=== PATIENT | male | born 1955 | race Caucasian/White ===

== ENCOUNTER → 2018-02-25 | Outpatient (CLI) | payer BC, MEDICAID ==
[2018-02-25 15:05] LABS: ALANINE AMINOTRANSFERASE 34 U/L (0-55); ALBUMIN 4.6 GM/DL (3.2-4.5); ALKALINE PHOSPHATASE 45 U/L (40-136); BILIRUBIN,TOTAL 0.5 MG/DL (0.1-1.0); BUN/CREATININE RATIO 14; CALCIUM 9.7 MG/DL (8.5-10.1); CARBON DIOXIDE 23 MMOL/L (21-32); CHLORIDE 107 MMOL/L (98-107); CHOLESTEROL 179 MG/DL (< 200); CREATININE SERUM 1.55 MG/DL (0.60-1.30); GFR ESTIMATED 46; GLUCOSE 106 MG/DL (70-105); HDL CHOLESTEROL 28 MG/DL (40-60); POTASSIUM 4.3 MMOL/L (3.6-5.0); SODIUM 139 MMOL/L (135-145); TRIGLYCERIDES 501 MG/DL (<150); VLDL CHOLESTEROL 100 MG/DL (5-40)
[2018-02-26 06:54] LABS: HEPATITIS C ANTIBODY C Non-Reactive (Non-Reactive)
== END ==
LOC: LAB 14:08
DX: Z11.59 Encounter for screening for other viral diseases (principal); B20 Human immunodeficiency virus [HIV] disease; E78.5 Hyperlipidemia, unspecified; B18.1 Chronic viral hepatitis B without delta-agent
CPT/HCPCS: 36415; 80053; 80061; 86360; 86480; 86704; 86708; 86709; 86780; 86803; 87912

== ENCOUNTER 2019-05-01 17:19 | Emergency (ER) | payer BC ==
[~2019-05-01] VITALS: Ht 175.3 cm; Wt 77.8 kg
--- NOTE | 2019-05-01 17:31 | ED Chest Pain ---
General Stated Complaint: CHEST PAIN Source: patient Exam Limitations: no limitations (DMITRIY WINTER DO) History of Present Illness Date Seen by Provider: May 01, 2019 Time Seen by Provider: 17:27 Initial Comments 63-year-old male presents with chest pain., Chest pressure that is epigastric substernal. It started around 7 PM last night. He been having it on and off since it started last night. Patient reports that last just a few brief seconds and then goes away. Patient reports nothing makes it worse or better. Patient reports he did some exercise did not affect it. Patient does not get nauseated no vomiting and no diaphoresis the pain does not radiate shortness of breath. Patient has no previous cardiac history. Patient is HIV positive and on medications. Patient has a family cardiac history with his father having heart bypass around this age. Patient reports that occasionally the discomfort comes up into his throat. Patient has "borderline high cholesterol, hypertension. (DMITRIY WINTER DO) Allergies and Home Medications Allergies Coded Allergies: Sulfa (Sulfonamide Antibiotics) (Verified Allergy, Unknown, 05/01/19) Tetracyclines (Verified Allergy, Unknown, 05/01/19) Patient Home Medication List Home Medication List Reviewed: Yes (DMITRIY WINTER DO) Review of Systems Review of Systems Constitutional: No chills, No fever Respiratory: Denies Cough, Denies Shortness of Air Cardiovascular: Chest Pain; Denies Edema, Denies Irregular Heart Rate, Denies Syncope Gastrointestinal: Denies Abdominal Pain, Denies Constipated, Denies Diarrhea, Denies Nausea, Denies Vomiting Genitourinary: No Symptoms Reported Musculoskeletal: no symptoms reported Skin: no symptoms reported Psychiatric/Neurological: Anxiety Endocrine: No Symptoms Reported (DMITRIY WINTER DO) Past Igqngbl-Yqzyam-Jchwuv Hx Past Med/Social Hx: Reviewed Nursing Past Med/Soc Hx (DMITRIY WINTER DO) Physical Exam Vital Signs Vital Signs - First Documented 05/01/19 17:23 Temp 37.3 Pulse 84 Resp 16 B/P (MAP) 152/88 (109) Pulse Ox 98 O2 Delivery Room Air (THANH SUMMERS MD) Vital Signs Capillary Refill : (DMITRIY WINTER DO) Height, Weight, BMI Height: '" Weight: lbs. oz. kg; BMI Method: General Appearance: No Apparent Distress, WD/WN HEENT: TMs Normal, Normal ENT Inspection Neck: Non Tender, Supple Respiratory: Chest Non Tender, Lungs Clear, Normal Breath Sounds Cardiovascular: Regular Rate, Rhythm, No Edema Gastrointestinal: Non Tender, Soft Neurologic/Psychiatric: Alert, Oriented x3, Normal Mood/Affect, rural carrier II-XII Norm as Tested Skin: Normal Color, Warm/Dry (WINTER,DMITRIY L DO) Progress/Results/Core Measures Results/Orders Lab Results Laboratory Tests Test 05/01/19 17:30 05/01/19 17:43 Range/Units White Blood Count 7.1 4.3-11.0 10^3/uL Red Blood Count 5.39 4.35-5.85 10^6/uL Hemoglobin 16.3 13.3-17.7 G/DL Hematocrit 48 40-54 % Mean Corpuscular Volume 89 80-99 FL Mean Corpuscular Hemoglobin 30 25-34 PG Mean Corpuscular Hemoglobin Concent 34 32-36 G/DL Red Cell Distribution Width 13.2 10.0-14.5 % Platelet Count 233 130-400 10^3/uL Mean Platelet Volume 9.4 7.4-10.4 FL Neutrophils (%) (Auto) 51 42-75 % Lymphocytes (%) (Auto) 39 12-44 % Monocytes (%) (Auto) 7 0-12 % Eosinophils (%) (Auto) 2 0-10 % Basophils (%) (Auto) 1 0-10 % Neutrophils # (Auto) 3.6 1.8-7.8 X 10^3 Lymphocytes # (Auto) 2.7 1.0-4.0 X 10^3 Monocytes # (Auto) 0.5 0.0-1.0 X 10^3 Eosinophils # (Auto) 0.2 0.0-0.3 10^3/uL Basophils # (Auto) 5.0 H 0.0-0.1 10^3/uL Sodium Level 142 135-145 MMOL/L Potassium Level 4.0 3.6-5.0 MMOL/L Chloride Level 104 98-107 MMOL/L Carbon Dioxide Level 21 21-32 MMOL/L Anion Gap 17 H 5-14 MMOL/L Blood Urea Nitrogen 19 H 7-18 MG/DL Creatinine 1.24 0.60-1.30 MG/DL Estimat Glomerular Filtration Rate 59 BUN/Creatinine Ratio 15 Glucose Level 92 70-105 MG/DL Calcium Level 10.0 8.5-10.1 MG/DL Corrected Calcium 8.5-10.1 MG/DL Magnesium Level 2.2 1.6-2.4 MG/DL Total Bilirubin 0.4 0.1-1.0 MG/DL Aspartate Amino Transf (AST/SGOT) 28 5-34 U/L Alanine Aminotransferase (ALT/SGPT) 32 0-55 U/L Alkaline Phosphatase 43 40-136 U/L Troponin I < 0.30 <0.30 NG/ML Pro-B-Type Natriuretic Peptide 35.7 <75.0 PG/ML Total Protein 8.7 H 6.4-8.2 GM/DL Albumin 5.2 H 3.2-4.5 GM/DL Lipase 32 8-78 U/L Prothrombin Time 14.0 12.2-14.7 SEC INR Comment 1.0 0.8-1.4 Activated Partial Thromboplast Time 32 24-35 SEC (THANH SUMMERS MD) Medications Given in ED Current Medications Medications Dose Ordered Sig/Rajinder Route Start Time Stop Time Status Last Admin Dose Admin Aspirin 324 mg ONCE ONCE PO 05/01/19 17:45 05/01/19 17:46 DC 05/01/19 17:44 324 MG Famotidine 20 mg ONCE ONCE IVP 05/01/19 17:45 05/01/19 17:46 DC 05/01/19 17:44 20 MG (THANH SUMMERS MD) Vital Signs/I&O 05/01/19 05/01/19 17:23 17:23 Temp 37.3 Pulse 84 Resp 16 B/P (MAP) 152/88 (109) Pulse Ox 98 O2 Delivery Room Air Room Air (HTANH SUMMERS MD) Progress Progress Note : Progress Note Negative troponin negative evaluation in the emergency department. Patient describes more of an esophageal spasm/GERD and he does any type of cardiac pain however patient does have concerns due to family history. Patient was offered admission and transferred to [facility] for further evaluation and observation. Patient has declined admission. Patient requests to be discharged home. Patient states he does have a scheduled appointment with his HIV physician in 2 days. Patient will make that appointment and follow up as instructed for possible outpatient stress test for cardiac evaluation. I did discuss it with the patient about other options. Patient states understanding and again declines admission to the hospital. Patient be discharged per his request. (THANH SUMMERS MD) Initial ECG Impression Date: May 01, 2019 Initial ECG Impression Time: 17:26 Initial ECG Rate: 79 Initial ECG Rhythm: Normal Sinus Initial ECG Intervals: Normal Initial ECG Impression: Nonspecific Changes Initial ECG Comparisson: No Previous ECG Available Comment no acute findings (DMITRIY WINTER DO) Departure Impression Primary Impression: Chest pain Disposition: 01 HOME, SELF-CARE Condition: Stable Departure-Patient Inst. Decision time for Depature: 18:34 (THANH SUMMERS MD) Referrals: LATRICE MARLEY MD (PCP) Primary Care Physician Patient Instructions: Chest Pain That Is Not Caused by the Heart (DC) Add. Discharge Instructions: Encourage by mouth fluids. Baby aspirin daily as instructed. Follow-up through her outpatient physician and be referred to cardiology for an outpatient cardiac stress test and evaluation. The chest pain fails to resolve or worsens please return to the emergency department for further evaluation and treatment. DMITRIY WINTER DO May 01, 2019 17:31 THANH SUMMERS MD May 01, 2019 18:35
[2019-05-01] MEDS ORDERED: FAMOTIDINE 20MG/2ML IV (PEPCID) IVP ONE (17:45)
[2019-05-01] MEDS ORDERED: ASPIRIN 81 MG CHEW (CHILDREN'S ASA) PO ONE (17:45)
--- NOTE | 2019-05-01 17:55 | Diagnostic Imaging Report ---
INDICATION: Respiratory distress. EXAMINATION: Single view of the chest was obtained. FINDINGS: Normal heart size and vascularity. The lungs are clear. There is no effusion or pneumothorax. There is no bony abnormality. IMPRESSION: No abnormality is seen. Dictated by: Dictated on workstation # [id number]
[2019-05-01 18:00] LABS: BASOPHILS % (AUTO) 1 % (0-10); EOSINOPHILS % (AUTO) 2 % (0-10); HEMATOCRIT 48 % (40-54); HEMOGLOBIN 16.3 G/DL (13.3-17.7); LYMPHOCYTES % (AUTO) 39 % (12-44); MEAN CORPUSCULAR HEMOGLOBIN 30 PG (25-34); MEAN CORPUSCULAR HGB CONC 34 G/DL (32-36); MEAN CORPUSCULAR VOLUME 89 FL (80-99); MEAN PLATELET VOLUME 9.4 FL (7.4-10.4); MONOCYTES % (AUTO) 7 % (0-12); NEUTROPHILS % (AUTO) 51 % (42-75); PLATELET COUNT 233 10^3/uL (130-400); RED CELL DISTRIBUTION WIDTH 13.2 % (10.0-14.5); WHITE BLOOD COUNT 7.1 10^3/uL (4.3-11.0)
[2019-05-01 18:01] LABS: EOSINOPHILS # (AUTO) 0.2 10^3/uL (0.0-0.3); LYMPHOCYTES # (AUTO) 2.7 X 10^3 (1.0-4.0); MONOCYTES # (AUTO) 0.5 X 10^3 (0.0-1.0); NEUTROPHILS # (AUTO) 3.6 X 10^3 (1.8-7.8)
[2019-05-01 18:16] LABS: BUN/CREATININE RATIO 15; CARBON DIOXIDE 21 MMOL/L (21-32); CHLORIDE 104 MMOL/L (98-107); CREATININE SERUM 1.24 MG/DL (0.60-1.30); GFR ESTIMATED 59; GLUCOSE 92 MG/DL (70-105); MAGNESIUM 2.2 MG/DL (1.6-2.4); SODIUM 142 MMOL/L (135-145)
[2019-05-01 18:17] LABS: ALANINE AMINOTRANSFERASE 32 U/L (0-55); ALBUMIN 5.2 GM/DL (3.2-4.5); ALKALINE PHOSPHATASE 43 U/L (40-136); BILIRUBIN,TOTAL 0.4 MG/DL (0.1-1.0); LIPASE 32 U/L (8-78); TOTAL PROTEIN 8.7 GM/DL (6.4-8.2)
[2019-05-01 18:40] VITALS: BP 136/82
[2019-05-01] MEDS ORDERED: DARU1TAB3 (18:59)
[2019-05-01] MEDS ORDERED: LISI-556 (18:59)
[2019-05-01] MEDS ORDERED: FENO160T12 (18:59)
--- OUTSIDE RECORDS SUMMARY | 2019-05-02 21:03 | XMS REPORT ---
Author Author Khurram Mancera Organization [facility] Address [address] [place] [phone] Care Team Providers Care Live In Housekeeper Nanny Name Role Phone Heather Mancera Unavailable PROBLEMS Type Condition ICD9-CM Code [id number] Code Onset Dates Condition S tatus SNOMED Code Problem Chronic hepatitis B B18.1 Active 63748173 Problem Drug-induced polyneuropathy G62.0 Ac tive 0240410 Problem Essential hypertension I10 Active 33906842 Problem Dyslipidemia E78.5 Active 6455445 07 Problem HIV (human immunodeficiency virus infection) B20 Active 71047103 Problem Refused influenza vaccine Z28.21 Acti ve [id number] ALLERGIES No Information ENCOUNTERS Encounter Location Date Diagnosis [address] [address] Mar, [address] [address] Mar, [facility] [address] [phone] Mar, HIV (human immunodeficiency virus infect ion) B20 and Refused influenza vaccine Z28.[address] [address] Feb, [facility] [address] [place] [address] S [id number] Jan, [facility] [address] [place] [address] S [id number] Jan, [facility] [address] [id number] Jan, Acquired immune deficiency syndrome B20 ; Dental caries K02.9 ; Refused influenza vaccine Z28.21 ; Dyslipidemia E78.5 ; Prostate cancer screening Z12.5 ; Chronic hepatitis B B18.1 ; Essential hypertension I10 ; Rash R21 and Tongue ulcer K14.[address] [address] 17 Oct, 2018 [facility] [address] [place], [place] [phone] Oct, HIV (human immunodeficiency virus infect ion) B20 ; New onset headache R51 ; Vertigo R42 ; Functional diarrhea K59.1 ; Drug-induced polyneuropathy G62.0 ; Right elbow pain M25.521 and Refused influenza vaccine Z28.[address] [id number] Apr, HIV (human immunodeficiency virus infect ion) B20 ; Chronic hepatitis B B18.1 and Hyperglycemia R73.[address] [address] Mar, [facility] [address] [place] [address], S [id number] Feb, [facility] [address] [place] [address], S [id number] Feb, [facility] [address] [place] [address], S [id number] Feb, [facility] [address] [place] [address], S [id number] Feb, [address] [address] Jan, [facility] [address] [place] [address] S [id number] Jan, [address] [id number] Jan, HIV (human immunodeficiency virus infect ion) B20 ; Chronic hepatitis B B18.1 ; Refused influenza vaccine Z28.21 ; Dyslipidemia E78.5 and Screening for viral disease Z11.59 [facility] [address] [place] [address], S [id number] Dec, [address] [address] Dec, [address] [address] Dec, HIV (human immunodeficiency virus infect ion) B20 [address] [address] Dec, HIV (human immunodeficiency virus infect ion) B20 [facility] [address] [place] [address], S [id number] Nov, [facility] [address] [place] [address] S [id number] Nov, Chronic hepatitis B B18.1 and HIV (human immunodeficiency virus infection) B20 [facility] [address] [place] [address] Jovita S [id number] Nov, Dyslipidemia E78.5 [facility] [address] [place] [address] S [id number] Nov, [facility] [address] [place] [phone] Nov, [address] [address] Nov, [facility] [address] [place] [id number] Oct, Acquired immune deficiency syndrome B20 ; Dental caries K02.9 ; Refused influenza vaccine Z28.21 ; Dyslipidemia E78.5 and Prostate cancer screening Z12.[address] [address] Oct, [facility] [address] [place] [address] S [id number] Sep, [facility] [address] [place] [address] S [id number] Sep, [facility] [address] [place] [address] S [id number] Aug, [facility] [address] [place] [address] S [id number] Aug, HIV (human immunodeficiency virus infect ion) B20 [facility] [address] [place] [address] [phone] Aug, HIV (human immunodeficiency virus infect ion) B20 ; Essential hypertension I10 and Dyslipidemia E78.5 IMMUNIZATIONS No Known Immunizations SOCIAL HISTORY Never Assessed REASON FOR VISIT results PLAN OF CARE VITAL SIGNS MEDICATIONS Unknown Medications RESULTS No Results PROCEDURES No Known procedures INSTRUCTIONS MEDICATIONS ADMINISTERED No Known Medications MEDICAL (GENERAL) HISTORY Type Description Date Medical History Chronic Hepatitis B Medical History HIV dx: 1985 Medical History HTN Medical History Hyperlipidemia Surgical History No know Surgical history
--- OUTSIDE RECORDS SUMMARY | 2019-05-02 21:03 | XMS REPORT ---
Author Author Khurram Mancera Organization [facility] Address [address] [place] [phone] Care Team Providers Care Associate Publisher Name Role Phone Heather Mancera Unavailable PROBLEMS Type Condition ICD9-CM Code YDR10-PY Code Onset Dates Condition S tatus SNOMED Code Problem Chronic hepatitis B B18.1 Active 54104301 Problem Drug-induced polyneuropathy G62.0 Ac tive 6953661 Problem Essential hypertension I10 Active 22913302 Problem Dyslipidemia E78.5 Active 3531840 07 Problem HIV (human immunodeficiency virus infection) B20 Active 18796442 Problem Refused influenza vaccine Z28.21 Acti ve [id number] ALLERGIES No Known Allergies ENCOUNTERS Encounter Location Date Diagnosis [address] [address] Mar, [address] [id number] Mar, HIV (human immunodeficiency virus infect ion) B20 and Refused influenza vaccine Z28.[address] [address] Feb, [facility] [address] [place] [address] [id number] Jan, [facility] [address] [place] [id number] Jan, [address] [id number] Jan, Acquired immune deficiency syndrome B20 ; Dental caries K02.9 ; Refused influenza vaccine Z28.21 ; Dyslipidemia E78.5 ; Prostate cancer screening Z12.5 ; Chronic hepatitis B B18.1 ; Essential hypertension I10 ; Rash R21 and Tongue ulcer K14.[address] [address] Oct, [address] [id number] Oct, HIV (human immunodeficiency virus infect ion) B20 ; New onset headache R51 ; Vertigo R42 ; Functional diarrhea K59.1 ; Drug-induced polyneuropathy G62.0 ; Right elbow pain M25.521 and Refused influenza vaccine Z28.21 [facility] [address] [place], [place] [id number] Apr, HIV (human immunodeficiency virus infect ion) B20 ; Chronic hepatitis B B18.1 and Hyperglycemia R73.[address] [address] Mar, [facility] [address] [place] [address], S [id number] Feb, [facility] [address] [place] [address], S [id number] Feb, [facility] [address] [place] [address], S [id number] Feb, [facility] [address] [place] [address] S [id number] Feb, [address] [address] Jan, [facility] [address] [place] [address] S [id number] Jan, [address] [id number] Jan, HIV (human immunodeficiency virus infect ion) B20 ; Chronic hepatitis B B18.1 ; Refused influenza vaccine Z28.21 ; Dyslipidemia E78.5 and Screening for viral disease Z11.59 [facility] [address] [place] [address], S [phone] Dec, [address] [address] Dec, [address] [address] Dec, HIV (human immunodeficiency virus infect ion) B20 [address] [address] Dec, HIV (human immunodeficiency virus infect ion) B20 [facility] [address] [place] [address], S [id number] Nov, [facility] [address] [place], [place] [address]Jovita marti S [id number] Nov, Chronic hepatitis B B18.1 and HIV (human immunodeficiency virus infection) B20 [facility] [address] [place] [address] Jovita Barahona S [id number] Nov, Dyslipidemia E78.5 [facility] [address] [place] [address] Jovita Barahona S [id number] Nov, [facility] [address] [place] [phone] Nov, [facility] [address] [place] [phone] Nov, [address] [id number] Oct, Acquired immune deficiency syndrome B20 ; Dental caries K02.9 ; Refused influenza vaccine Z28.21 ; Dyslipidemia E78.5 and Prostate cancer screening Z12.[address] [address] Oct, [facility] [address] [place] [address] [place] S [id number] Sep, [facility] [address] [place] [address] [place] [id number] Sep, [facility] [address] [place] [address] [place], [place] S [id number] Aug, [facility] [address] [place], [place] [address]Jovita amrti S [id number] Aug, HIV (human immunodeficiency virus infect ion) B20 [address] [id number] Aug, HIV (human immunodeficiency virus infect ion) B20 ; Essential hypertension I10 and Dyslipidemia E78.5 IMMUNIZATIONS No Known Immunizations SOCIAL HISTORY Never Assessed REASON FOR VISIT PLAN OF CARE Activity Details Follow Up 4 Months Reason: VITAL SIGNS Height 69.5 in 2019-03-26 Weight 173 lbs 2019-03-26 Temperature 97.6 degrees Fahrenheit 2019-03-26 Heart Rate 84 /min 2019-03-26 Respiratory Rate 16 /min 2019-03-26 Oximetry 97 % 2019-03-26 BMI 25.18 kg/m2 2019-03-26 Blood pressure systolic 124 mm Hg 2019-03-26 Blood pressure diastolic 76 mm Hg 2019-03-26 MEDICATIONS Medication Instructions Dosage Frequency Start Date End Date Duration S tatus Lovaza 1 GM Orally Twice a day 2 capsules 12h 30 day (s) Active Gabapentin 300 MG Orally TID 1 capsule 8h 13 Oct, 2018 30 d ay(s) Active Triamcinolone Acetonide 0.1 % Externally Twice a day 1 appli cation to affected area 12h 20 Jan, 2019 10 days Active Symtuza 800mg/150 mg/200 mg/10mg Orally Once daily 1 tablet with fo od 24h Nov, Active Lisinopril 5 MG Orally Once a day 1 tablet 24h 30 Active Meclizine HCl 25 MG Orally Once a day 1 tablet as needed 24h 30 day(s) Active RESULTS Name Result Date Reference Range HIV-1, Quant, PCR w Reflex HIV-1 GenoSure Prime 64198 2019-03-26 HIV-1 RNA by PCR 60 log10 HIV-1 RNA 1.778 HIV GenoSure PRIme(SM) TNP PDF . Rapid Plasma Reagin (RPR), Test w/ Refle x to Quant RPR/Confirm Treponema pallidum Antibodies 55928 2019-03-26 RPR Non Reactive Non Reactive Lipid Panel 98017 2019-03-26 Cholesterol, Total 170 100-199 Triglycerides 472 0-149 HDL Cholesterol 24 >39 VLDL Cholesterol Hiro 5-40 LDL Cholesterol Calc 0-99 Comment: OPERATION MANAGER Metabolic Panel (14), Comprehensive (CMP) [id number] 2019-03-26 Glucose 104 65-99 BUN 18 8-27 Creatinine 1.25 0.76-1.27 eGFR If NonAfricn Am 61 >59 eGFR If Africn Am 70 >59 BUN/Creatinine Ratio 14 10-24 Sodium 140 134-144 Potassium 4.9 3.5-5.2 Chloride 103 96-106 Carbon Dioxide, Total 22 20-29 Calcium 9.8 8.6-10.2 Protein, Total 7.4 6.0-8.5 Albumin 4.8 3.8-4.8 Globulin, Total 2.6 1.5-4.5 A/G Ratio 1.8 1.2-2.2 Bilirubin, Total 0.3 0.0-1.2 Alkaline Phosphatase 41 39-117 AST (SGOT) 19 0-40 ALT (SGPT) 33 0-44 CD4/CD8 Ratio Profile 97463 2019-03-26 Absolute CD 4 [place] [phone] % CD 4 Pos. Lymph. 33.9 30.8-58.5 Abs. CD 8 Suppressor 1175 109-897 % CD 8 Pos. Lymph. 51.1 12.0-35.5 CD4/CD8 Ratio 0.66 0.92-3.72 WBC 6.3 3.4-10.8 RBC 5.28 4.14-5.80 Hemoglobin 15.9 13.0-17.7 Hematocrit 47.1 37.5-51.0 MCV 89 79-97 MCH 30.1 26.6-33.0 MCHC 33.8 31.5-35.7 RDW 13.7 11.6-15.4 Platelets 214 150-450 Neutrophils 50 Not Estab. Lymphs 37 Not Estab. Monocytes 10 Not Estab. Eos 1 Not Estab. Basos 1 Not Estab. Immature Cells OPERATION MANAGER Neutrophils (Absolute) 3.2 1.4-7.0 Lymphs (Absolute) 2.3 0.7-3.1 Monocytes(Absolute) 0.6 0.1-0.9 Eos (Absolute) 0.1 0.0-0.4 Baso (Absolute) 0.1 0.0-0.2 Immature Granulocytes 1 Not Estab. Immature Grans (Abs) 0.0 0.0-0.1 NRBC OPERATION MANAGER Hematology Comments: OPERATION MANAGER PROCEDURES Procedure Date Ordered Result Body Site HIV-1, DNA, QUANT Mar 26, 2019 T CELL, ABSOLUTE COUNT/RATIO Mar 26, 2019 BLOOD SEROLOGY, QUALITATIVE Mar 26, 2019 COMPREHEN METABOLIC PANEL Mar 26, 2019 LIPID PANEL SO Mar 26, 2019 INSTRUCTIONS MEDICATIONS ADMINISTERED No Known Medications MEDICAL (GENERAL) HISTORY Type Description Date Medical History Chronic Hepatitis B Medical History HIV dx: 1985 Medical History HTN Medical History Hyperlipidemia Surgical History No know Surgical history
--- OUTSIDE RECORDS SUMMARY | 2019-05-02 21:03 | XMS REPORT ---
Author Author Khurram Mancera Organization [facility] [place] Address [address] [place] [address] [phone] Care Team Providers Care Word Processing Specialist Name Role Phone Heather Mancera Unavailable PROBLEMS Type Condition ICD9-CM Code [id number] Code Onset Dates Condition S tatus SNOMED Code Problem Chronic hepatitis B B18.1 Active 34821598 Problem Drug-induced polyneuropathy G62.0 Ac tive 2157988 Problem Essential hypertension I10 Active 67426529 Problem Dyslipidemia E78.5 Active 2084420 07 Problem HIV (human immunodeficiency virus infection) B20 Active 64764638 Problem Refused influenza vaccine Z28.21 Acti ve [id number] ALLERGIES No Information ENCOUNTERS Encounter Location Date Diagnosis [address] [address] Apr, [address] [address] Mar, [address] [address] Mar, [address] [id number] Mar, HIV (human immunodeficiency virus infect ion) B20 and Refused influenza vaccine Z28.[address] [address] Feb, [facility] [address] [place] [address] S [id number] Jan, [facility] [address] [place] [address] S [id number] Jan, [address] [id number] Jan, Acquired immune deficiency syndrome B20 ; Dental caries K02.9 ; Refused influenza vaccine Z28.21 ; Dyslipidemia E78.5 ; Prostate cancer screening Z12.5 ; Chronic hepatitis B B18.1 ; Essential hypertension I10 ; Rash R21 and Tongue ulcer K14.[address] [address] Oct, [address] [id number] Oct, HIV (human immunodeficiency virus infect ion) B20 ; New onset headache R51 ; Vertigo R42 ; Functional diarrhea K59.1 ; Drug-induced polyneuropathy G62.0 ; Right elbow pain M25.521 and Refused influenza vaccine Z28.[address] [id number] Apr, HIV (human immunodeficiency virus infect ion) B20 ; Chronic hepatitis B B18.1 and Hyperglycemia R73.[address] [address] Mar, [facility] [address] [place] [address], S [id number] Feb, [facility] [address] [place] [address], S [id number] Feb, [facility] [address] [place] [address], S [id number] Feb, [facility] [address] [place] [address], S [id number] Feb, [address] [address] Jan, [facility] [address] [place] [address], S [id number] Jan, [address] [id number] Jan, HIV (human immunodeficiency virus infect ion) B20 ; Chronic hepatitis B B18.1 ; Refused influenza vaccine Z28.21 ; Dyslipidemia E78.5 and Screening for viral disease Z11.59 [facility] [address] [place] [address], S [id number] Dec, [address] [address] Dec, [address] [address] Dec, HIV (human immunodeficiency virus infect ion) B20 [facility] [place] [address] [place] [address] Dec, HIV (human immunodeficiency virus infect ion) B20 [facility] [address] [place] [address] S [id number] Nov, [facility] [address] [place] [address] S [id number] Nov, Chronic hepatitis B B18.1 and HIV (human immunodeficiency virus infection) B20 [facility] [address] [place] [address] S [id number] Nov, Dyslipidemia E78.5 [facility] [address] [place] [address] S [id number] Nov, [address] [address] Nov, [facility] [place] [address] [place] [phone] Nov, [facility] [address] [place] [id number] Oct, Acquired immune deficiency syndrome B20 ; Dental caries K02.9 ; Refused influenza vaccine Z28.21 ; Dyslipidemia E78.5 and Prostate cancer screening Z12.[address] [address] Oct, [facility] [address] [place] [address] S [id number] Sep, [facility] [address] [place] [address] S [id number] Sep, [facility] [address] [place] [address] S [id number] Aug, [facility] [address] [place] [address] S [id number] Aug, HIV (human immunodeficiency virus infect ion) B20 [facility] [address] [place] [phone] Aug, HIV (human immunodeficiency virus infect ion) B20 ; Essential hypertension I10 and Dyslipidemia E78.5 IMMUNIZATIONS No Known Immunizations SOCIAL HISTORY Never Assessed REASON FOR VISIT Refill PLAN OF CARE VITAL SIGNS MEDICATIONS Medication Instructions Dosage Frequency Start Date End Date Duration S tatus Lovaza 1 GM Orally Twice a day 2 capsules 12h 30 day (s) Active RESULTS No Results PROCEDURES No Known procedures INSTRUCTIONS MEDICATIONS ADMINISTERED No Known Medications MEDICAL (GENERAL) HISTORY Type Description Date Medical History Chronic Hepatitis B Medical History HIV dx: 1984 Medical History HTN Medical History Hyperlipidemia Surgical History No know Surgical history
--- OUTSIDE RECORDS SUMMARY | 2019-05-02 21:04 | XMS REPORT ---
Author Author Khurram Lau Organization [facility] Address [address] [place] [address] [phone] Care Team Providers Care Director Of Managed Services Name Role Phone Minerva Lau Unavailable PROBLEMS Type Condition ICD9-CM Code [id number] Code Onset Dates Condition S tatus SNOMED Code Problem Chronic hepatitis B B18.1 Active 67137618 Problem Drug-induced polyneuropathy G62.0 Ac tive 0723750 Problem Essential hypertension I10 Active 43329574 Problem Dyslipidemia E78.5 Active 0540678 07 Problem HIV (human immunodeficiency virus infection) B20 Active 85489973 Problem Refused influenza vaccine Z28.21 Acti ve [id number] ALLERGIES No Known Allergies ENCOUNTERS Encounter Location Date Diagnosis [facility] [address] [place] [address] [id number] Jan, [facility] [address] [place] [id number] Jan, [address] [id number] Jan, Acquired immune deficiency syndrome B20 ; Dental caries K02.9 ; Refused influenza vaccine Z28.21 ; Dyslipidemia E78.5 ; Prostate cancer screening Z12.5 ; Chronic hepatitis B B18.1 ; Essential hypertension I10 ; Rash R21 and Tongue ulcer K14.[address] [address] Oct, [address] [id number] Oct, HIV (human immunodeficiency virus infect ion) B20 ; New onset headache R51 ; Vertigo R42 ; Functional diarrhea K59.1 ; Drug-induced polyneuropathy G62.0 ; Right elbow pain M25.521 and Refused influenza vaccine Z28.[address] [id number] Apr, HIV (human immunodeficiency virus infect ion) B20 ; Chronic hepatitis B B18.1 and Hyperglycemia R73.9 [facility] [address] [place] [address] Mar, [facility] [address] [facility], S [id number] Feb, [facility] [address] [facility], S [id number] Feb, [facility] [address] [facility], S [id number] Feb, [facility] [address] [facility], S [id number] Feb, [facility] [address] [place] [address] Jan, [facility] [address] [facility], S [id number] Jan, [facility] [address] [place], [place] [id number] Jan, HIV (human immunodeficiency virus infect ion) B20 ; Chronic hepatitis B B18.1 ; Refused influenza vaccine Z28.21 ; Dyslipidemia E78.5 and Screening for viral disease Z11.59 [facility] [address] [facility] S [id number] Dec, [facility] [address] [place] [address] Dec, [facility] [address] [place] [address] Dec, HIV (human immunodeficiency virus infect ion) B20 [facility] [address] [place] [address] Dec, HIV (human immunodeficiency virus infect ion) B20 [facility] [address] [facility], S [id number] Nov, [facility] [address] [place] [address], S [id number] Nov, Chronic hepatitis B B18.1 and HIV (human immunodeficiency virus infection) B20 [facility] [address] [place] [address], S [id number] Nov, Dyslipidemia E78.5 [facility] [address] [place] [address], S [id number] Nov, [facility] [address] [place] [address] Nov, [facility] [address] [place] [address] Nov, [facility] [address] [place] [id number] Oct, Acquired immune deficiency syndrome B20 ; Dental caries K02.9 ; Refused influenza vaccine Z28.21 ; Dyslipidemia E78.5 and Prostate cancer screening Z12.5 [facility] [address] [place] [address] Oct, [facility] [address] [place] [address] S [id number] Sep, [facility] [address] [place] [address] S [id number] Sep, [facility] [address] [place] [address] S [id number] Aug, [facility] [address] [place] [address] S [id number] Aug, HIV (human immunodeficiency virus infect ion) B20 [facility] [address] [place] [phone] Aug, HIV (human immunodeficiency virus infect ion) B20 ; Essential hypertension I10 and Dyslipidemia E78.5 IMMUNIZATIONS No Known Immunizations SOCIAL HISTORY Never Assessed REASON FOR VISIT [facility] f/u PLAN OF CARE Activity Details Follow Up 3 Months, prn Reason: VITAL SIGNS Height 69.5 in 2019-02-05 Weight 170 lbs 2019-02-05 Temperature 96.5 degrees Fahrenheit 2019-02-05 Heart Rate 85 /min 2019-02-05 Respiratory Rate 18 /min 2019-02-05 Oximetry 97 % 2019-02-05 BMI 24.74 kg/m2 2019-02-05 Blood pressure systolic 124 mm Hg 2019-02-05 Blood pressure diastolic 72 mm Hg 2019-02-05 MEDICATIONS Medication Instructions Dosage Frequency Start Date End Date Duration S asiya Symtuza 800mg/150 mg/200 mg/10mg Orally Once daily 1 tablet with fo od 24h 29 Nov, 2017 Active Triamcinolone Acetonide 0.1 % Externally Twice a day 1 appli cation to affected area 12h Jan, 10 days Active Meclizine HCl 25 MG Orally Once a day 1 tablet as needed 24h 30 day(s) Active Lovaza 1 GM Orally Twice a day 2 capsules 12h 30 day (s) Active Lisinopril 5 MG Orally Once a day 1 tablet 24h 30 Active Gabapentin 300 MG Orally TID 1 capsule 8h 13 Oct, 2018 30 d ay(s) Active RESULTS No Results PROCEDURES No Known procedures INSTRUCTIONS MEDICATIONS ADMINISTERED No Known Medications MEDICAL (GENERAL) HISTORY Type Description Date Medical History Chronic Hepatitis B Medical History HIV dx: 1984 Medical History HTN Medical History Hyperlipidemia Surgical History No know Surgical history
--- OUTSIDE RECORDS SUMMARY | 2019-05-02 21:04 | XMS REPORT ---
Author Author Khurram Herrera Doctor Organization [facility] Address Unknown Phone Unavailable Care Team Providers Care Stable Helper Name Role Phone Migration, Doctor Unavailable Unavailable PROBLEMS Type Condition ICD9-CM Code [id number] Code Onset Dates Condition S tatus SNOMED Code Problem Pain in joint, shoulder region 719.41 Active 670385434 Problem External hemorrhoids without mention of complication 455.3 Active 55334206 Problem Problems related to high-risk sexual behavior V69.2 Active 086108056 ALLERGIES No Information ENCOUNTERS Encounter Location Date Diagnosis [place] [address] [address] [facility] [id number] [address] [place] [phone] May, [place] [address] [address] [place] [id number] [address] [place] [phone] May, [place] [address] [address] [place] [id number] [address] [place] [phone] Aug, [place] [address] [address] [facility] [id number] [address] [place] [phone] Aug, IMMUNIZATIONS No Known Immunizations SOCIAL HISTORY Never Assessed REASON FOR VISIT [facility] PLAN OF CARE VITAL SIGNS MEDICATIONS Unknown Medications RESULTS No Results PROCEDURES No Known procedures INSTRUCTIONS MEDICATIONS ADMINISTERED No Known Medications
--- OUTSIDE RECORDS SUMMARY | 2019-05-02 21:04 | XMS REPORT ---
Author Author Khurram Herrera Doctor Organization [facility] Address Unknown Phone Unavailable Care Team Providers Care Pulley Man Name Role Phone Migration, Doctor Unavailable Unavailable PROBLEMS Type Condition ICD9-CM Code [id number] Code Onset Dates Condition S tatus SNOMED Code Problem Pain in joint, shoulder region 719.41 Active 787311044 Problem External hemorrhoids without mention of complication 455.3 Active 36288418 Problem Problems related to high-risk sexual behavior V69.2 Active 335661568 ALLERGIES Substance Reaction Event Type Date Status Penicillins Unknown Non Drug Allergy May, Active Tetracyclines Unknown Non Drug Allergy May, Active Sulfa (sulfonamide Antibiotics) Unknown Non Drug Allergy 2014 Active ENCOUNTERS Encounter Location Date Diagnosis [place] [address] [address] [facility] [id number] [address] [place] [phone] May, [place] [address] [address] [facility] [id number] [address] [place] [phone] May, [place] [address] [address] [facility] [id number] [address] [place] [phone] Aug, [place] [id number] [facility] [id number] [address] [place] [phone] Aug, IMMUNIZATIONS No Known Immunizations SOCIAL HISTORY Never Assessed REASON FOR VISIT [facility] [place] PLAN OF CARE VITAL SIGNS MEDICATIONS Medication Instructions Dosage Frequency Start Date End Date Duration S tatus Keflex 250 mg 1 capsule by Oral route 4 times per day for 6 days Aug, Active Reyataz 300 mg take 1 capsule (300 mg) by oral route o nce daily with food Aug, Active Zithromax Z-Mingo 250 mg 2 tablet by Oral route 1 time per day for 5 days on day 1 then take 1 tab daily on days 2-5 Aug, Active Viread 250 mg Aug, Activ e Fish Oil once daily Aug, Active Lisinopril 5 mg take 1 tablet (5 mg) by oral route once da katrina Aug, 2013 Active Norvir 100 mg take 1 tablet (100 mg) by oral route once da Aug, Active Epzicom 600-300 mg take 1 tablet by oral route once daily Aug, Active RESULTS No Results PROCEDURES No Known procedures INSTRUCTIONS MEDICATIONS ADMINISTERED No Known Medications
--- OUTSIDE RECORDS SUMMARY | 2019-05-02 21:04 | XMS REPORT ---
Author Author Khurram Mancera Organization [facility] Address [address] [place] [address] [phone] Care Team Providers Care Linoleum Installer Name Role Phone Heather Mancera Unavailable PROBLEMS Type Condition ICD9-CM Code BIQ48-QA Code Onset Dates Condition S tatus SNOMED Code Problem Chronic hepatitis B B18.1 Active 28067076 Problem Refused influenza vaccine Z28.21 Acti ve 616320731 Problem Essential hypertension I10 Active 06291601 Problem HIV (human immunodeficiency virus infection) B20 Active 51175905 Problem Dyslipidemia E78.5 Active 0740454 07 ALLERGIES No Information ENCOUNTERS Encounter Location Date Diagnosis [address] [place], [place] [phone] Jan, [address] [address] Dec, HIV (human immunodeficiency virus infect ion) B20 [address] [address] Dec, HIV (human immunodeficiency virus infect ion) B20 [facility] [address] [place] [address] S [id number] Nov, [facility] [address] [place] [address] S [id number] Nov, Chronic hepatitis B B18.1 and HIV (human immunodeficiency virus infection) B20 [facility] [address] [place] [address] S [id number] Nov, Dyslipidemia E78.5 [facility] [address] [place] [address] S [id number] Nov, [address] [address] Nov, [address] [address] Nov, [facility] [address] [id number] Oct, Acquired immune deficiency s yndrome B20 ; Dental caries K02.9 ; Refused influenza vaccine Z28.21 ; Dyslipidemia E78.5 and Prostate cancer screening Z12.5 [facility] [address] [place] [address] Oct, [facility] [address] [place] [address], S [phone] Sep, [facility] [address] [place] [address] S [id number] Sep, [facility] [address] [place] [address] S [id number] Aug, [facility] [address] [place] [address], S [id number] Aug, HIV (human immunodeficiency virus infect ion) B20 [facility] [address] [id number] Aug, HIV (human immunodeficiency virus infection) B20 ; Essential hypertension I10 and Dyslipidemia E78.5 IMMUNIZATIONS No Known Immunizations SOCIAL HISTORY Never Assessed REASON FOR VISIT Medication PLAN OF CARE VITAL SIGNS MEDICATIONS Medication Instructions Dosage Frequency Start Date End Date Duration S tatus Symtuza 800mg/150 mg/200 mg/10mg Orally Once daily 1 tablet with fo od 24h Nov, 30 days Active RESULTS No Results PROCEDURES No Known procedures INSTRUCTIONS MEDICATIONS ADMINISTERED No Known Medications MEDICAL (GENERAL) HISTORY Type Description Date Medical History Chronic Hepatitis B Medical History HIV dx: 1985 Medical History HTN Medical History Hyperlipidemia
--- OUTSIDE RECORDS SUMMARY | 2019-05-02 21:04 | XMS REPORT ---
Author Author Khurram Mancera Organization Formerly named [facility] Address [address] [place] [phone] Care Team Providers Care Burial Vault Maker Name Role Phone Heather Mancera Unavailable PROBLEMS Type Condition ICD9-CM Code SVU19-FE Code Onset Dates Condition S tatus SNOMED Code Problem Chronic hepatitis B B18.1 Active 88103471 Problem Refused influenza vaccine Z28.21 Acti ve 946055961 Problem Essential hypertension I10 Active 62794070 Problem HIV (human immunodeficiency virus infection) B20 Active 33837609 Problem Dyslipidemia E78.5 Active 0642702 07 ALLERGIES No Information ENCOUNTERS Encounter Location Date Diagnosis [address] [id number] Jan, [facility] [address] [place] [address] [id number] Nov, [facility] [address] [place] [address] [id number] Nov, Chronic hepatitis B B18.1 [facility] [address] [place] [address] S [id number] Nov, Dyslipidemia E78.5 [facility] [address] [place] [address] [id number] Nov, [address] [address] Nov, [address] [address] Nov, [address] [id number] Oct, Acquired immune deficiency s yndrome B20 ; Dental caries K02.9 ; Refused influenza vaccine Z28.21 ; Dyslipidemia E78.5 and Prostate cancer screening Z12.[address] [address] Oct, [facility] [address] [facility] [place], [place] S [id number] Sep, [facility] [address] [facility] [place] S [id number] Sep, [facility] [address] [facility] [place] S [id number] Aug, [facility] [address] [facility] [place] S [id number] Aug, HIV (human immunodeficiency virus infect ion) B20 [facility] [address] [place] [id number] Aug, HIV (human immunodeficiency virus infection) B20 ; Essential hypertension I10 and Dyslipidemia E78.5 IMMUNIZATIONS No Known Immunizations SOCIAL HISTORY Never Assessed REASON FOR VISIT reschedule dental appt PLAN OF CARE VITAL SIGNS MEDICATIONS Unknown Medications RESULTS No Results PROCEDURES No Known procedures INSTRUCTIONS MEDICATIONS ADMINISTERED No Known Medications MEDICAL (GENERAL) HISTORY Type Description Date Medical History Chronic Hepatitis B Medical History HIV dx: 1984 Medical History HTN Medical History Hyperlipidemia
--- OUTSIDE RECORDS SUMMARY | 2019-05-02 21:04 | XMS REPORT ---
Author Author Khurram Lau Organization [facility] [place] Address [address] [place] [address] [phone] Care Team Providers Care Zigzag Machine Operator Name Role Phone Minerva Lau Unavailable PROBLEMS Type Condition ICD9-CM Code QIV72-CX Code Onset Dates Condition S tatus SNOMED Code Problem Chronic hepatitis B B18.1 Active 38993894 Problem Refused influenza vaccine Z28.21 Acti ve 254427739 Problem Essential hypertension I10 Active 10349942 Problem HIV (human immunodeficiency virus infection) B20 Active 49791953 Problem Dyslipidemia E78.5 Active 3771636 07 ALLERGIES No Information ENCOUNTERS Encounter Location Date Diagnosis [address] [id number] Jan, [facility] [address] [place] [address] [id number] Nov, [facility] [address] [place] [address] [id number] Nov, Chronic hepatitis B B18.1 and HIV (human immunodeficiency virus infection) B20 [facility] [address] [place] [address] [id number] Nov, Dyslipidemia E78.5 [facility] [address] [place] [id number] Nov, [address] [address] Nov, [address] [address] Nov, [address] [id number] Oct, Acquired immune deficiency s yndrome B20 ; Dental caries K02.9 ; Refused influenza vaccine Z28.21 ; Dyslipidemia E78.5 and Prostate cancer screening Z12.[address] [address] Oct, [facility] [facility] [id number] Sep, [facility] [facility] [id number] Sep, [facility] [place] S [phone] Aug, [facility] [facility] [phone] Aug, HIV (human immunodeficiency virus infect ion) B20 [facility] [address] [facility] [address] [place], [place] [phone] Aug, HIV (human immunodeficiency virus infection) B20 ; Essential hypertension I10 and Dyslipidemia E78.5 IMMUNIZATIONS No Known Immunizations SOCIAL HISTORY Never Assessed REASON FOR VISIT Change HIV meds* PLAN OF CARE VITAL SIGNS MEDICATIONS Medication Instructions Dosage Frequency Start Date End Date Duration S tatus Lisinopril 5 MG Orally Once a day 1 tablet 24h 30 da ys Active Lovaza 1 GM Orally Twice a day 2 capsules 12h Nov, 3 0 day(s) Active Symtuza 800mg/150 mg/200 mg/10mg Orally Once daily 1 tablet with fo od 24h Nov, 30 days Active RESULTS No Results PROCEDURES No Known procedures INSTRUCTIONS MEDICATIONS ADMINISTERED No Known Medications MEDICAL (GENERAL) HISTORY Type Description Date Medical History Chronic Hepatitis B Medical History HIV dx: 1984 Medical History HTN Medical History Hyperlipidemia
--- OUTSIDE RECORDS SUMMARY | 2019-05-02 21:04 | XMS REPORT ---
Author Author Khurram Mancera Organization [facility] Address [address] [place] [address] [phone] Care Team Providers Care Hat Sprayer Name Role Phone Heather Mancera Unavailable PROBLEMS Type Condition ICD9-CM Code [id number] Code Onset Dates Condition S tatus SNOMED Code Problem Chronic hepatitis B B18.1 Active 26601119 Problem Refused influenza vaccine Z28.21 Acti ve 446194856 Problem Essential hypertension I10 Active 60474870 Problem HIV (human immunodeficiency virus infection) B20 Active 04092069 Problem Dyslipidemia E78.5 Active 8214200 07 ALLERGIES No Information ENCOUNTERS Encounter Location Date Diagnosis [facility] [address] [place] [address] [id number] Jan, [facility] [address] [place] [address] [phone] Jan, HIV (human immunodeficiency virus infection) B20 ; Chronic hepatitis B B18.1 and Refused influenza vaccine Z28.21 [facility] [address] [place] [phone] Dec, [address] [address] Dec, [address] [address] Dec, HIV (human immunodeficiency virus infect ion) B20 [address] [address] Dec, HIV (human immunodeficiency virus infect ion) B20 [facility]ty [address] S [id number] Nov, [facility] [address] [place] [address] [id number] Nov, Chronic hepatitis B B18.1 and HIV (human immunodeficiency virus infection) B20 [facility] [address] [place] [address] S [id number] Nov, Dyslipidemia E78.5 [facility] [address] [place], [place] [address]Jovita S [id number] Nov, [address] [address] Nov, [facility] [address] [place] [phone] Nov, [place] [facility] [address] [place] [address] [phone] Oct, Acquired immune deficiency s yndrome B20 ; Dental caries K02.9 ; Refused influenza vaccine Z28.21 ; Dyslipidemia E78.5 and Prostate cancer screening Z12.[address] [address] Oct, [facility] [address] [place] [address], Jovita S [id number] Sep, [facility] [address] [place] [address] S [id number] Sep, [facility] [address] [place] [address], S [phone] Aug, [facility] [address] [place] [address], S [phone] Aug, HIV (human immunodeficiency virus infect ion) B20 [address] [phone] Aug, HIV (human immunodeficiency virus infection) B20 ; Essential hypertension I10 and Dyslipidemia E78.5 IMMUNIZATIONS No Known Immunizations SOCIAL HISTORY Never Assessed REASON FOR VISIT HIV meds PLAN OF CARE VITAL SIGNS MEDICATIONS Unknown Medications RESULTS No Results PROCEDURES No Known procedures INSTRUCTIONS MEDICATIONS ADMINISTERED No Known Medications MEDICAL (GENERAL) HISTORY Type Description Date Medical History Chronic Hepatitis B Medical History HIV dx: 1985 Medical History HTN Medical History Hyperlipidemia
--- OUTSIDE RECORDS SUMMARY | 2019-05-02 21:04 | XMS REPORT ---
Author Author Khurram GILLESPIE Organization [facility] Address Unknown Care Team Providers Care Personal Consultant Name Role Phone LIS GILLESPIE Unavailable PROBLEMS Unknown Problems ALLERGIES No Known Allergies ENCOUNTERS Encounter Location Date Diagnosis [facility] [address] [facility] [id number] [address] [place] [address] [id number] Feb, [facility] [address] [facility] [id number] [address] [place] [phone] Jan, [facility] [address] [id number] [address] [place] [address] [phone] Dec, Caries K02.9 and Dental exam ination Z01.20 [facility] [address] [facility] [id number] [address] [place] [phone] Oct, [facility] [address] [facility] [id number] [address] [place] [phone] Aug, IMMUNIZATIONS No Known Immunizations SOCIAL HISTORY Never Assessed REASON FOR VISIT Criss PLAN OF CARE Activity Details Follow Up prn Reason:filling VITAL SIGNS Blood pressure systolic 137 mmHg 2018-01-13 Blood pressure diastolic 95 mmHg 2018-01-13 MEDICATIONS Medication Instructions Dosage Frequency Start Date End Date Duration S tatus Lovaza Active Lisinopril Active RESULTS No Results PROCEDURES Procedure Date Ordered Result Body Site COMP ORAL EVALUATION - NEW/EST PT Jan 13, 2018 INTRAORL-PERIAPICAL 1 FILM 20555 Jan 13, 2018 INTRAORL-PERIAPICAL EA ADD FILM Jan 13, 2018 INTRAORL-PERIAPICAL EA ADD FILM Jan 13, 2018 PANORAMIC FILM SEE ALSO CODE 31613 Jan 13, 2018 BITEWINGS - FOUR FILMS Jan 13, 2018 INSTRUCTIONS MEDICATIONS ADMINISTERED No Known Medications MEDICAL (GENERAL) HISTORY Type Description Date Medical History HIV Surgical History No Surgical history information
--- OUTSIDE RECORDS SUMMARY | 2019-05-02 21:04 | XMS REPORT ---
Author Author Khurram Mancera Organization [facility] Address [address] [place] [address] [phone] Care Team Providers Care Special Events Coordinator Name Role Phone Heather Mancera Unavailable PROBLEMS Type Condition ICD9-CM Code [id number] Code Onset Dates Condition S tatus SNOMED Code Problem Refused influenza vaccine Z28.21 Acti ve 235638036 Problem HIV (human immunodeficiency virus infection) B20 Active 69830859 Problem Dyslipidemia E78.5 Active 8572811 07 Problem Essential hypertension I10 Active 21173864 ALLERGIES No Information ENCOUNTERS Encounter Location Date Diagnosis [address] [id number] Jan, [facility] [address] [place] [address] S [id number] Nov, Dyslipidemia E78.[address] S [id number] Nov, [address] [address] Nov, [address] [address] Nov, [address] [id number] Oct, Acquired immune deficiency s yndrome B20 ; Dental caries K02.9 ; Refused influenza vaccine Z28.21 ; Dyslipidemia E78.5 and Prostate cancer screening Z12.[address] [address] Oct, [facility] [address] [place] [address] S [id number] Sep, [facility] [address] [place] [address] S [id number] Sep, [facility] [address] [place] [address] S [id number] Aug, [facility] [address] [facility] Jovita Barahona S [id number] Aug, HIV (human immunodeficiency virus infect ion) B20 [place] [facility] [address] [place] [phone] Aug, HIV (human immunodeficiency virus infection) B20 ; Essential hypertension I10 and Dyslipidemia E78.5 IMMUNIZATIONS No Known Immunizations SOCIAL HISTORY Never Assessed REASON FOR VISIT voucher request PLAN OF CARE VITAL SIGNS MEDICATIONS Unknown Medications RESULTS No Results PROCEDURES No Known procedures INSTRUCTIONS MEDICATIONS ADMINISTERED No Known Medications MEDICAL (GENERAL) HISTORY Type Description Date Medical History Chronic Hepatitis B Medical History HIV dx: 1984 Medical History HTN Medical History Hyperlipidemia
--- OUTSIDE RECORDS SUMMARY | 2019-05-02 21:04 | XMS REPORT ---
Author Author Khurram Mancera Organization [facility] Address [address] [place] [address] [phone] Care Team Providers Care Sofa Inspector Name Role Phone Heather Mancera Unavailable PROBLEMS Type Condition ICD9-CM Code [id number] Code Onset Dates Condition S tatus SNOMED Code Problem Chronic hepatitis B B18.1 Active 61699407 Problem Drug-induced polyneuropathy G62.0 Ac tive 8311472 Problem Essential hypertension I10 Active 47594889 Problem Dyslipidemia E78.5 Active 0478108 07 Problem HIV (human immunodeficiency virus infection) B20 Active 87295085 Problem Refused influenza vaccine Z28.21 Acti ve 360850431 ALLERGIES No Information ENCOUNTERS Encounter Location Date Diagnosis [address] [address] Oct, [address] [id number] Oct, HIV (human immunodeficiency virus infect ion) B20 ; New onset headache R51 ; Vertigo R42 ; Functional diarrhea K59.1 ; Drug-induced polyneuropathy G62.0 ; Right elbow pain M25.521 and Refused influenza vaccine Z28.[address] [id number] Apr, HIV (human immunodeficiency virus infect ion) B20 ; Chronic hepatitis B B18.1 and Hyperglycemia R73.[address] [address] Mar, [facility] [address] [place], [place] [address]Jovita christopher [id number] Feb, [facility] [address] [place], [place] [address]Jovita christopher [phone] Feb, [facility] [address] [place], [place] [address]Jovita christopher [phone] Feb, [facility] [address] [place] [address] S [id number] Feb, [facility] [address] [place] [phone] Jan, [facility] [address] [place] [address] S [id number] Jan, [place] [facility] [address] [place] [phone] Jan, HIV (human immunodeficiency virus infect ion) B20 ; Chronic hepatitis B B18.1 ; Refused influenza vaccine Z28.21 ; Dyslipidemia E78.5 and Screening for viral disease Z11.59 [facility] [address] [place] [address] S [id number] Dec, [address] [address] Dec, [address] [address] Dec, HIV (human immunodeficiency virus infect ion) B20 [address] [address] Dec, HIV (human immunodeficiency virus infect ion) B20 [facility] [address] [place] [address] S [id number] Nov, [facility] [address] [place] [address] S [id number] Nov, Chronic hepatitis B B18.1 and HIV (human immunodeficiency virus infection) B20 [facility] [address] [place] [address] S [id number] Nov, Dyslipidemia E78.5 [facility] [address] [place] [address] S [id number] Nov, [address] [address] Nov, [address] [address] Nov, [place] [facility] [address] [place] [address] [id number] Oct, Acquired immune deficiency syndrome B20 ; Dental caries K02.9 ; Refused influenza vaccine Z28.21 ; Dyslipidemia E78.5 and Prostate cancer screening Z12.[address] [address] Oct, [facility] [facility], Jovita S [id number] Sep, [facility] [address] [facility], Jovita S [id number] Sep, [facility] [address] [facility], Jovita S [id number] Aug, [facility] [address] [facility], Jovita S [id number] Aug, HIV (human immunodeficiency virus infect ion) B20 [facility] [address] [place] [phone] Aug, HIV (human immunodeficiency virus infect ion) B20 ; Essential hypertension I10 and Dyslipidemia E78.5 IMMUNIZATIONS No Known Immunizations SOCIAL HISTORY Never Assessed REASON FOR VISIT MRI Brain Referral PLAN OF CARE VITAL SIGNS MEDICATIONS Unknown Medications RESULTS No Results PROCEDURES No Known procedures INSTRUCTIONS MEDICATIONS ADMINISTERED No Known Medications MEDICAL (GENERAL) HISTORY Type Description Date Medical History Chronic Hepatitis B Medical History HIV dx: 1985 Medical History HTN Medical History Hyperlipidemia Surgical History No Surgical history information
--- OUTSIDE RECORDS SUMMARY | 2019-05-02 21:04 | XMS REPORT ---
Author Author Khurram Mancera Organization [facility] Address [address] [place] [address] [phone] Care Team Providers Care Research Associate Policy Name Role Phone Heather Mancera Unavailable PROBLEMS Type Condition ICD9-CM Code [id number] Code Onset Dates Condition S tatus SNOMED Code Problem Chronic hepatitis B B18.1 Active 17447577 Problem Drug-induced polyneuropathy G62.0 Ac tive 3666655 Problem Essential hypertension I10 Active 52539062 Problem Dyslipidemia E78.5 Active 5680218 07 Problem HIV (human immunodeficiency virus infection) B20 Active 06870388 Problem Refused influenza vaccine Z28.21 Acti ve 132408019 ALLERGIES No Information ENCOUNTERS Encounter Location Date Diagnosis [address] [address] Feb, [facility] [address] [place] [address] [id number] Jan, [facility] [address] [place] [address] [id number] Jan, [address] [id number] Jan, Acquired immune deficiency syndrome B20 ; Dental caries K02.9 ; Refused influenza vaccine Z28.21 ; Dyslipidemia E78.5 ; Prostate cancer screening Z12.5 ; Chronic hepatitis B B18.1 ; Essential hypertension I10 ; Rash R21 and Tongue ulcer K14.[address] [address] Oct, [address] [id number] Oct, HIV (human immunodeficiency virus infect ion) B20 ; New onset headache R51 ; Vertigo R42 ; Functional diarrhea K59.1 ; Drug-induced polyneuropathy G62.0 ; Right elbow pain M25.521 and Refused influenza vaccine Z28.[address] [place] , [place] [id number] Apr, HIV (human immunodeficiency virus infect ion) B20 ; Chronic hepatitis B B18.1 and Hyperglycemia R73.9 [facility] [address] [place] [address] Mar, [facility] [address] [place] [address], S [id number] Feb, [facility] [address] [place] [address], S [id number] Feb, [facility] [address] [place] [address], S [id number] Feb, [facility] [address] [place] [address], S [id number] Feb, [facility] [address] [place] [phone] Jan, [facility] [address] [place] [address] S [id number] Jan, [facility] [address] [place] [phone] Jan, HIV (human immunodeficiency virus infect ion) B20 ; Chronic hepatitis B B18.1 ; Refused influenza vaccine Z28.21 ; Dyslipidemia E78.5 and Screening for viral disease Z11.59 [facility] [address] [place] [address] S [id number] Dec, [facility] [address] [place] [phone] Dec, [address] [address] Dec, HIV (human immunodeficiency virus infect ion) B20 [address] [address] Dec, HIV (human immunodeficiency virus infect ion) B20 [facility] [address] [place] [address], S [id number] Nov, [facility] [address] [place] [address], S [id number] Nov, Chronic hepatitis B B18.1 and HIV (human immunodeficiency virus infection) B20 [facility] [address] [place] [address], S [id number] Nov, Dyslipidemia E78.5 [facility] [address] [place] [address], [place] S [id number] Nov, [facility] [address] [place] [phone] Nov, [facility] [address] [place] [phone] Nov, [address] [id number] Oct, Acquired immune deficiency syndrome B20 ; Dental caries K02.9 ; Refused influenza vaccine Z28.21 ; Dyslipidemia E78.5 and Prostate cancer screening Z12.5 [facility] [address] [place] [phone] Oct, [facility] [address] [place] [address], Jovita S [id number] Sep, [facility] [address] [place] [address], S [id number] Sep, [facility] [address] [place] [address], S [id number] Aug, [facility] [address] [place] [address], S [id number] Aug, HIV (human immunodeficiency virus infect ion) B[address] [phone] Aug, HIV (human immunodeficiency virus infect ion) B20 ; Essential hypertension I10 and Dyslipidemia E78.5 IMMUNIZATIONS No Known Immunizations SOCIAL HISTORY Never Assessed REASON FOR VISIT referral PLAN OF CARE VITAL SIGNS MEDICATIONS Unknown Medications RESULTS No Results PROCEDURES No Known procedures INSTRUCTIONS MEDICATIONS ADMINISTERED No Known Medications MEDICAL (GENERAL) HISTORY Type Description Date Medical History Chronic Hepatitis B Medical History HIV dx: 1985 Medical History HTN Medical History Hyperlipidemia Surgical History No know Surgical history
--- OUTSIDE RECORDS SUMMARY | 2019-05-02 21:04 | XMS REPORT ---
Author Author Khurram MARIE Organization [facility] Address [address] [place] [address] Care Team Providers Care Marquetry Worker Name Role Phone SUZETTE MARIE Unavailable PROBLEMS Unknown Problems ALLERGIES No Information ENCOUNTERS Encounter Location Date Diagnosis [facility] [address] [facility] [id number] [address] [place] [address] [phone] Feb, [facility] [address] [place] [id number] [address] [place] [phone] Jan, [facility] [address] [facility] [id number] [address] [place] [address] [id number] Dec, Caries K02.9 and Dental exam ination Z01.20 [facility] [address] [place] [id number] [address] [place] [phone] Oct, [facility] [address] [place] [id number] [address] [place] [phone] Aug, IMMUNIZATIONS No Known Immunizations SOCIAL HISTORY Never Assessed REASON FOR VISIT PLAN OF CARE VITAL SIGNS MEDICATIONS Unknown Medications RESULTS No Results PROCEDURES No Known procedures INSTRUCTIONS MEDICATIONS ADMINISTERED No Known Medications MEDICAL (GENERAL) HISTORY Type Description Date Medical History HIV Surgical History No Surgical history information
--- OUTSIDE RECORDS SUMMARY | 2019-05-02 21:04 | XMS REPORT ---
Author Author Khurram Mancera Organization [facility] Address [address] [place] [address] [phone] Care Team Providers Care Research Quality Assurance Specialist Name Role Phone Heather Mancera Unavailable PROBLEMS Type Condition ICD9-CM Code EQW97-TR Code Onset Dates Condition S tatus SNOMED Code Problem Chronic hepatitis B B18.1 Active 23035611 Problem Drug-induced polyneuropathy G62.0 Ac tive 2040695 Problem Essential hypertension I10 Active 28475975 Problem Dyslipidemia E78.5 Active 2233542 07 Problem HIV (human immunodeficiency virus infection) B20 Active 94239952 Problem Refused influenza vaccine Z28.21 Acti ve [id number] ALLERGIES No Information ENCOUNTERS Encounter Location Date Diagnosis [facility] [address] [place] [address] [phone] Jan, [facility] [address] [place] [phone] Jan, [address] [id number] Jan, Acquired immune deficiency syndrome B20 ; Dental caries K02.9 ; Refused influenza vaccine Z28.21 ; Dyslipidemia E78.5 ; Prostate cancer screening Z12.5 ; Chronic hepatitis B B18.1 ; Essential hypertension I10 ; Rash R21 and Tongue ulcer K14.[address] [address] Oct, [address] [id number] Oct, HIV (human immunodeficiency virus infect ion) B20 ; New onset headache R51 ; Vertigo R42 ; Functional diarrhea K59.1 ; Drug-induced polyneuropathy G62.0 ; Right elbow pain M25.521 and Refused influenza vaccine Z28.[address] [id number] Apr, HIV (human immunodeficiency virus infect ion) B20 ; Chronic hepatitis B B18.1 and Hyperglycemia R73.9 [facility] [address] [place] [address] Mar, [facility] [address] [facility], S [id number] Feb, [facility] [address] [facility], S [id number] Feb, [facility] [address] [facility], S [id number] Feb, [facility] [address] [facility], [place] [id number] Feb, [facility] [address] [place] [address] Jan, [facility] [address] [facility], S [id number] Jan, [facility] [place] [address] [place], [place] [phone] Jan, HIV (human immunodeficiency virus infect ion) B20 ; Chronic hepatitis B B18.1 ; Refused influenza vaccine Z28.21 ; Dyslipidemia E78.5 and Screening for viral disease Z11.59 [facility] [address] [facility], S [id number] Dec, [facility] [address] [place] [address] Dec, [facility] [address] [place] [address] Dec, HIV (human immunodeficiency virus infect ion) B20 [facility] [address] [place] [address] Dec, HIV (human immunodeficiency virus infect ion) B20 [facility] [address] [facility], S [id number] Nov, [facility] [address] [place] [address], S [id number] Nov, Chronic hepatitis B B18.1 and HIV (human immunodeficiency virus infection) B20 [facility] [address] [facility], S [id number] Nov, Dyslipidemia E78.5 [facility] [address] [place] [address], [place] S [phone] Nov, [facility] [address] [place] [address] Nov, [facility] [address] [place] [phone] Nov, [place] [address] [place] [phone] Oct, Acquired immune deficiency syndrome B20 ; Dental caries K02.9 ; Refused influenza vaccine Z28.21 ; Dyslipidemia E78.5 and Prostate cancer screening Z12.5 [facility] [address] [place] [phone] Oct, [facility] [address] [place] [address], [place] S [id number] Sep, [facility] [address] [place] [address], [place] S [id number] Sep, [facility] [address] [place] [address], [place] S [phone] Aug, [facility] [address] [place] [address], [place] S [id number] Aug, HIV (human immunodeficiency virus infect ion) B20 [facility] [place] [address] [place] [address] [phone] Aug, HIV (human immunodeficiency virus infect ion) B20 ; Essential hypertension I10 and Dyslipidemia E78.5 IMMUNIZATIONS No Known Immunizations SOCIAL HISTORY Never Assessed REASON FOR VISIT Eye Exam Referral PLAN OF CARE VITAL SIGNS MEDICATIONS Unknown Medications RESULTS No Results PROCEDURES No Known procedures INSTRUCTIONS MEDICATIONS ADMINISTERED No Known Medications MEDICAL (GENERAL) HISTORY Type Description Date Medical History Chronic Hepatitis B Medical History HIV dx: 1985 Medical History HTN Medical History Hyperlipidemia Surgical History No know Surgical history
--- OUTSIDE RECORDS SUMMARY | 2019-05-02 21:04 | XMS REPORT ---
Author Author Khurram Mancera Organization [facility] Address [address] [place] [address] [phone] Care Team Providers Care First Aid Nurse Name Role Phone Heather Mancera Unavailable PROBLEMS Type Condition ICD9-CM Code [id number] Code Onset Dates Condition S tatus SNOMED Code Problem Refused influenza vaccine Z28.21 Acti ve 930047969 Problem HIV (human immunodeficiency virus infection) B20 Active 90021298 Problem Dyslipidemia E78.5 Active 3561947 07 Problem Essential hypertension I10 Active 19808686 ALLERGIES No Information ENCOUNTERS Encounter Location Date Diagnosis [address] [id number] Jan, [facility] [address] [place] [address] S [id number] Nov, Dyslipidemia E78.[address] S [id number] Nov, [address] [address] Nov, [address] [address] Nov, [address] [phone] Oct, Acquired immune deficiency s yndrome B20 ; Dental caries K02.9 ; Refused influenza vaccine Z28.21 ; Dyslipidemia E78.5 and Prostate cancer screening Z12.[address] [address] Oct, [facility] [address] [place] [address] S [id number] Sep, [facility] [address] [place] [address] S [id number] Sep, [facility] [address] [place] [address] S [id number] Aug, [facility] [address] [facility] Jovita Barahona S [phone] Aug, HIV (human immunodeficiency virus infect ion) B20 [facility] [address] [place] [phone] Aug, HIV (human immunodeficiency virus infection) B20 ; Essential hypertension I10 and Dyslipidemia E78.5 IMMUNIZATIONS No Known Immunizations SOCIAL HISTORY Never Assessed REASON FOR VISIT lovaza 2 a day? PLAN OF CARE VITAL SIGNS MEDICATIONS Medication Instructions Dosage Frequency Start Date End Date Duration S tatus Lovaza 1 GM Orally Twice a day 2 capsules 12h 09 Nov, 2017 3 0 day(s) Active RESULTS No Results PROCEDURES No Known procedures INSTRUCTIONS MEDICATIONS ADMINISTERED No Known Medications MEDICAL (GENERAL) HISTORY Type Description Date Medical History Chronic Hepatitis B Medical History HIV dx: 1984 Medical History HTN Medical History Hyperlipidemia
--- OUTSIDE RECORDS SUMMARY | 2019-05-02 21:04 | XMS REPORT ---
Author Author Khurram Mancera Organization [facility] Address [address] [place] [address] [phone] Care Team Providers Care Weaver Axminster Name Role Phone Heather Mancera Unavailable PROBLEMS Type Condition ICD9-CM Code YEM40-PI Code Onset Dates Condition S tatus SNOMED Code Problem Chronic hepatitis B B18.1 Active 94073929 Problem Drug-induced polyneuropathy G62.0 Ac tive 8226134 Problem Essential hypertension I10 Active 79783475 Problem Dyslipidemia E78.5 Active 3750377 07 Problem HIV (human immunodeficiency virus infection) B20 Active 83646087 Problem Refused influenza vaccine Z28.21 Acti ve 134081259 ALLERGIES No Known Allergies ENCOUNTERS Encounter Location Date Diagnosis [address] [id number] Oct, HIV (human immunodeficiency virus infect ion) B20 ; New onset headache R51 ; Vertigo R42 ; Functional diarrhea K59.1 ; Drug-induced polyneuropathy G62.0 ; Right elbow pain M25.521 and Refused influenza vaccine Z28.[address] [id number] Apr, HIV (human immunodeficiency virus infect ion) B20 ; Chronic hepatitis B B18.1 and Hyperglycemia R73.[address] [address] Mar, [facility] [address] [place], [place] [address]Jovita christopher S [id number] Feb, [facility] [address] [place], [place] [address]Jovita S [id number] Feb, [facility] [address] [place], [place] [address]Jovita marti S [id number] Feb, [facility] [address] [place], [place] [address]Jovita marti S [id number] Feb, [address] [address] Jan, [facility] [address] [place] [address] S [id number] Jan, [facility] [address] [place] [phone] Jan, HIV (human immunodeficiency virus infect ion) B20 ; Chronic hepatitis B B18.1 ; Refused influenza vaccine Z28.21 ; Dyslipidemia E78.5 and Screening for viral disease Z11.59 [facility] [address] [place] [address] S [id number] Dec, [facility] [address] [place] [phone] Dec, [address] [address] Dec, HIV (human immunodeficiency virus infect ion) B20 [address] [address] Dec, HIV (human immunodeficiency virus infect ion) B20 [facility] [address] [place] [address], S [id number] Nov, [facility] [address] [place] [address] S [id number] Nov, Chronic hepatitis B B18.1 and HIV (human immunodeficiency virus infection) B20 [facility] [address] [place] [address] S [id number] Nov, Dyslipidemia E78.5 [facility] [address] [place] [address] S [id number] Nov, [address] [address] Nov, [address] [address] Nov, [facility] [address] [place] [phone] Oct, Acquired immune deficiency syndrome B20 ; Dental caries K02.9 ; Refused influenza vaccine Z28.21 ; Dyslipidemia E78.5 and Prostate cancer screening Z12.[address] [address] Oct, [facility] [address] [place] [address], S [id number] Sep, [facility] [address] [place] [place] S [id number] Sep, [facility] [address] [place] S [id number] Aug, [facility] [address] Jov[address] S [id number] Aug, HIV (human immunodeficiency virus infect ion) B20 [facility] [address] [place] [phone] Aug, HIV (human immunodeficiency virus infect ion) B20 ; Essential hypertension I10 and Dyslipidemia E78.5 IMMUNIZATIONS No Known Immunizations SOCIAL HISTORY Never Assessed REASON FOR VISIT PLAN OF CARE Activity Details Follow Up 4 Months Reason: Pending Test MRI : Brain with and without contrast VITAL SIGNS Height 69.5 in 2018-10-30 Weight 169.7 lbs 2018-10-30 Temperature 98.0 degrees Fahrenheit 2018-10-30 Heart Rate 73 /min 2018-10-30 Respiratory Rate 20 /min 2018-10-30 Oximetry 97 % 2018-10-30 BMI 24.70 kg/m2 2018-10-30 Blood pressure systolic 140 mm Hg 2018-10-30 Blood pressure diastolic 80 mm Hg 2018-10-30 MEDICATIONS Medication Instructions Dosage Frequency Start Date End Date Duration S tatus Fenofibrate 160 MG Orally Once a day 1 tablet with food 24h 2018 30 day(s) Active Meloxicam 15 MG Orally Once a day 1 tablet 24h Oct, 30 day(s) Active Meclizine HCl 25 MG Orally Once a day 1 tablet as needed 24h 30 day(s) Active Lisinopril 5 MG Orally Once a day 1 tablet 24h 30 Active Symtuza 800mg/150 mg/200 mg/10mg Orally Once daily 1 tablet with fo od 24h Nov, Active Gabapentin 300 MG Orally TID 1 capsule 8h Oct, 30 d ay(s) Active Mytesi 125 MG Orally Twice a day 1 tablet 12h Oct, 3 0 day(s) Active RESULTS No Results PROCEDURES Procedure Date Ordered Result Body Site COMPREHEN METABOLIC PANEL Oct 30, 2018 HIV-1, DNA, QUANT Oct 30, 2018 T CELL, ABSOLUTE COUNT/RATIO Oct 30, 2018 INSTRUCTIONS MEDICATIONS ADMINISTERED No Known Medications MEDICAL (GENERAL) HISTORY Type Description Date Medical History Chronic Hepatitis B Medical History HIV dx: 1984 Medical History HTN Medical History Hyperlipidemia Surgical History No Surgical history information
--- OUTSIDE RECORDS SUMMARY | 2019-05-02 21:04 | XMS REPORT ---
Author Author Khurram Mancera Organization [facility] Address [address] [place] [address] [phone] Care Team Providers Care Player Development Manager Name Role Phone Heather Mancera Unavailable PROBLEMS Type Condition ICD9-CM Code PTI19-EG Code Onset Dates Condition S tatus SNOMED Code Problem Chronic hepatitis B B18.1 Active 97792177 Problem Drug-induced polyneuropathy G62.0 Ac tive 9082699 Problem Essential hypertension I10 Active 86982506 Problem Dyslipidemia E78.5 Active 8980657 07 Problem HIV (human immunodeficiency virus infection) B20 Active 44353146 Problem Refused influenza vaccine Z28.21 Acti ve [id number] ALLERGIES No Information ENCOUNTERS Encounter Location Date Diagnosis [facility] [address] [place] [address] [id number] Jan, [facility] [address] [place] [id number] Jan, [address] [id number] Jan, Acquired immune deficiency syndrome B20 ; Dental caries K02.9 ; Refused influenza vaccine Z28.21 ; Dyslipidemia E78.5 ; Prostate cancer screening Z12.5 ; Chronic hepatitis B B18.1 ; Essential hypertension I10 ; Rash R21 and Tongue ulcer K14.[address] [address] Oct, [address] [id number] Oct, HIV (human immunodeficiency virus infect ion) B20 ; New onset headache R51 ; Vertigo R42 ; Functional diarrhea K59.1 ; Drug-induced polyneuropathy G62.0 ; Right elbow pain M25.521 and Refused influenza vaccine Z28.[address] [id number] Apr, HIV (human immunodeficiency virus infect ion) B20 ; Chronic hepatitis B B18.1 and Hyperglycemia R73.9 [facility] [address] [place] [address] Mar, [facility] [address] [facility], S [id number] Feb, [facility] [address] [facility], S [id number] Feb, [facility] [address] [facility], S [id number] Feb, [facility] [address] [facility], [place] [id number] Feb, [facility] [address] [place] [address] Jan, [facility] [address] [facility], S [id number] Jan, [facility] [address] [place] [phone] Jan, HIV (human immunodeficiency virus infect ion) B20 ; Chronic hepatitis B B18.1 ; Refused influenza vaccine Z28.21 ; Dyslipidemia E78.5 and Screening for viral disease Z11.59 [facility] [address] [facility], S [id number] Dec, [facility] [address] [place] [address] Dec, [facility] [address] [place] [address] Dec, HIV (human immunodeficiency virus infect ion) B20 [facility] [address] [place] [address] Dec, HIV (human immunodeficiency virus infect ion) B20 [facility] [address] [facility], S [id number] Nov, [facility] [address] [place] [address], S [id number] Nov, Chronic hepatitis B B18.1 and HIV (human immunodeficiency virus infection) B20 [facility] [address] [facility], S [id number] Nov, Dyslipidemia E78.5 [facility] [address] [place] [address], [place] [id number] Nov, [facility] [address] [place] [address] Nov, [facility] [address] [place] [phone] Nov, [place] [address] [place] [id number] Oct, Acquired immune deficiency syndrome B20 ; Dental caries K02.9 ; Refused influenza vaccine Z28.21 ; Dyslipidemia E78.5 and Prostate cancer screening Z12.5 [facility] [address] [place] [phone] Oct, [facility] [address] [place] [address], [place] S [phone] Sep, [facility] [address] [place] [address], [place] S [id number] Sep, [facility] [address] [place] [address], [place] S [id number] Aug, [facility] [address] [place] [address], [place] S [id number] Aug, HIV (human immunodeficiency virus infect ion) B20 [facility] [address] [place] [address] [phone] Aug, HIV (human immunodeficiency virus infect ion) B20 ; Essential hypertension I10 and Dyslipidemia E78.5 IMMUNIZATIONS No Known Immunizations SOCIAL HISTORY Never Assessed REASON FOR VISIT Tongue Sore PLAN OF CARE VITAL SIGNS MEDICATIONS Unknown Medications RESULTS No Results PROCEDURES No Known procedures INSTRUCTIONS MEDICATIONS ADMINISTERED No Known Medications MEDICAL (GENERAL) HISTORY Type Description Date Medical History Chronic Hepatitis B Medical History HIV dx: 1985 Medical History HTN Medical History Hyperlipidemia Surgical History No know Surgical history
--- OUTSIDE RECORDS SUMMARY | 2019-05-02 21:04 | XMS REPORT ---
Author Author Khurram Mancera Organization [facility] Address [address] [place] [address] [phone] Care Team Providers Care [employer]dnance [employer] Officer Name Role Phone Heather Mancera Unavailable PROBLEMS Type Condition ICD9-CM Code VAS69-TH Code Onset Dates Condition S tatus SNOMED Code Problem Chronic hepatitis B B18.1 Active 69370233 Problem Drug-induced polyneuropathy G62.0 Ac tive 7832843 Problem Essential hypertension I10 Active 71504904 Problem Dyslipidemia E78.5 Active 1619774 07 Problem HIV (human immunodeficiency virus infection) B20 Active 66903427 Problem Refused influenza vaccine Z28.21 Acti ve [id number] ALLERGIES No Information ENCOUNTERS Encounter Location Date Diagnosis [address] [address] Mar, [address] [id number] Mar, HIV (human immunodeficiency virus infect ion) B20 and Refused influenza vaccine Z28.[address] [address] Feb, [facility] [address] [place] [address] [phone] Jan, [facility] [address] [place] [address] [phone] Jan, [address] [id number] Jan, Acquired immune deficiency syndrome B20 ; Dental caries K02.9 ; Refused influenza vaccine Z28.21 ; Dyslipidemia E78.5 ; Prostate cancer screening Z12.5 ; Chronic hepatitis B B18.1 ; Essential hypertension I10 ; Rash R21 and Tongue ulcer K14.[address] [address] Oct, [facility] [address] [id number] Oct, HIV (human immunodeficiency virus infect ion) B20 ; New onset headache R51 ; Vertigo R42 ; Functional diarrhea K59.1 ; Drug-induced polyneuropathy G62.0 ; Right elbow pain M25.521 and Refused influenza vaccine Z28.21 [facility] [address] [place], [place] [id number] Apr, HIV (human immunodeficiency virus infect ion) B20 ; Chronic hepatitis B B18.1 and Hyperglycemia R73.[address] [address] Mar, [facility] [address] [place] [address], [place] S [id number] Feb, [facility] [address] [place] [address], S [id number] Feb, [facility] [address] [place] [address], S [id number] Feb, [facility] [address] [place] [address] S [id number] Feb, [address] [address] Jan, [facility] [address] [place] [address] S [id number] Jan, [address] [id number] Jan, HIV (human immunodeficiency virus infect ion) B20 ; Chronic hepatitis B B18.1 ; Refused influenza vaccine Z28.21 ; Dyslipidemia E78.5 and Screening for viral disease Z11.59 [facility] [address] [place] [address], S [id number] Dec, [address] [address] Dec, [address] [address] Dec, HIV (human immunodeficiency virus infect ion) B20 [address] [address] Dec, HIV (human immunodeficiency virus infect ion) B20 [facility] [address] [place] [address], S [id number] Nov, [facility] [address] [place], [place] [address]Jovita marti S [id number] Nov, Chronic hepatitis B B18.1 and HIV (human immunodeficiency virus infection) B20 [facility] [address] [place] [address] Jun, Jovita S [id number] Nov, Dyslipidemia E78.5 [facility] [address] [place] [address] [place] [id number] Nov, [facility] [address] [place] [phone] Nov, [facility] [address] [place] [phone] Nov, [address] [id number] Oct, Acquired immune deficiency syndrome B20 ; Dental caries K02.9 ; Refused influenza vaccine Z28.21 ; Dyslipidemia E78.5 and Prostate cancer screening Z12.[address] [address] Oct, [facility] [address] [place], [place] [address]Jovita marti S [id number] Sep, [facility] [address] [place], [place] [address]Jovita marti S [id number] Sep, [facility] [address] [place], [place] [address]ta, Jovita S [id number] Aug, [facility] [address] [place], [place] [address]Jovita S [phone] Aug, HIV (human immunodeficiency virus infect ion) B20 [address] [id number] Aug, HIV (human immunodeficiency virus infect ion) B20 ; Essential hypertension I10 and Dyslipidemia E78.5 IMMUNIZATIONS No Known Immunizations SOCIAL HISTORY Never Assessed REASON FOR VISIT smytuza PLAN OF CARE VITAL SIGNS MEDICATIONS Unknown Medications RESULTS No Results PROCEDURES No Known procedures INSTRUCTIONS MEDICATIONS ADMINISTERED No Known Medications MEDICAL (GENERAL) HISTORY Type Description Date Medical History Chronic Hepatitis B Medical History HIV dx: 1984 Medical History HTN Medical History Hyperlipidemia Surgical History No know Surgical history
--- OUTSIDE RECORDS SUMMARY | 2019-05-02 21:04 | XMS REPORT ---
Author Author Khurram Mancera Organization [facility] Address [address] [place] [address] [phone] Care Team Providers Care Sports Writer Name Role Phone Heather Mancera Unavailable PROBLEMS Type Condition ICD9-CM Code MLR27-HO Code Onset Dates Condition S tatus SNOMED Code Problem Chronic hepatitis B B18.1 Active 89386257 Problem Refused influenza vaccine Z28.21 Acti ve 920496425 Problem Essential hypertension I10 Active 07668529 Problem HIV (human immunodeficiency virus infection) B20 Active 56560910 Problem Dyslipidemia E78.5 Active 2072525 07 ALLERGIES No Information ENCOUNTERS Encounter Location Date Diagnosis [address] [place] [phone] Jan, [address] [address] Dec, HIV (human immunodeficiency virus infect ion) B20 [address] [address] Dec, HIV (human immunodeficiency virus infect ion) B20 [facility] [address] [place] [address] S [id number] Nov, [facility] [address] [place] [address] S [id number] Nov, Chronic hepatitis B B18.1 and HIV (human immunodeficiency virus infection) B20 [facility] [address] [place] [address] S [id number] Nov, Dyslipidemia E78.5 [facility] [address] [place] [address] S [id number] Nov, [address] [address] Nov, [address] [address] Nov, [facility] [address] [place] [phone] Oct, Acquired immune deficiency s yndrome B20 ; Dental caries K02.9 ; Refused influenza vaccine Z28.21 ; Dyslipidemia E78.5 and Prostate cancer screening Z12.5 [facility] [address] [place] [address] Oct, [facility] [address] [place] [address], S [phone] Sep, [facility] [address] [place] [address] S [id number] Sep, [facility] [address] [place] [address] S [id number] Aug, [facility] [address] [place] [address], S [id number] Aug, HIV (human immunodeficiency virus infect ion) B20 [facility] [address] [phone] Aug, HIV (human immunodeficiency virus infection) B20 ; Essential hypertension I10 and Dyslipidemia E78.5 IMMUNIZATIONS No Known Immunizations SOCIAL HISTORY Never Assessed REASON FOR VISIT med chg not at pharm PLAN OF CARE VITAL SIGNS MEDICATIONS Medication [...]
--- OUTSIDE RECORDS SUMMARY | 2019-05-02 21:04 | XMS REPORT ---
Author Author Khurram MARIE Organization [facility] Address [address] [place] [address] Care Team Providers Care Mortgage Counselor Name Role Phone SUZETTE MARIE Unavailable PROBLEMS Unknown Problems ALLERGIES No Information ENCOUNTERS Encounter Location Date Diagnosis [facility] [address] [facility] [id number] [address] [place] [address] [phone] Feb, [facility] [address] [place] [id number] [address] [place] [phone] Jan, [facility] [address] [facility] [id number] [address] [place] [address] [id number] Dec, Caries K02.9 and Dental exam ination Z01.20 [facility] [address] [place] [id number] [address] [place] [phone] Oct, [facility] [address] [place] [id number] [address] [place] [phone] Aug, IMMUNIZATIONS No Known Immunizations SOCIAL HISTORY Never Assessed REASON FOR VISIT Sweet PLAN OF CARE VITAL SIGNS MEDICATIONS Unknown Medications RESULTS No Results PROCEDURES No Known procedures INSTRUCTIONS MEDICATIONS ADMINISTERED No Known Medications MEDICAL (GENERAL) HISTORY Type Description Date Medical History HIV Surgical History No Surgical history information
--- OUTSIDE RECORDS SUMMARY | 2019-05-02 21:05 | XMS REPORT ---
Author Author Khurram Mancera Organization [facility] Address [address] [place] [address] [phone] Care Team Providers Care Brazer Induction Name Role Phone Heather Mancera Unavailable PROBLEMS Type Condition ICD9-CM Code CHP46-TN Code Onset Dates Condition S tatus SNOMED Code Problem Dyslipidemia E78.5 Active 7914472 07 Problem Essential hypertension I10 Active 80132677 Problem HIV (human immunodeficiency virus infection) B20 Active 57828388 ALLERGIES No Information ENCOUNTERS Encounter Location Date Diagnosis [facility] [address] [place] [address] S [phone] Sep, [facility] [address] [place] [address] [phone] Sep, [facility] [address] [place] [address] S [id number] Aug, [facility] [address] [place] [address] S [id number] Aug, HIV (human immunodeficiency virus infect ion) B20 [facility] [address] [phone] Aug, HIV (human immunodeficiency virus infection) B20 ; Essential hypertension I10 and Dyslipidemia E78.5 IMMUNIZATIONS No Known Immunizations SOCIAL HISTORY Never Assessed REASON FOR VISIT when would you like pt jerilyn? not in notes PLAN OF CARE VITAL SIGNS MEDICATIONS Unknown Medications RESULTS No Results PROCEDURES No Known procedures INSTRUCTIONS MEDICATIONS ADMINISTERED No Known Medications MEDICAL (GENERAL) HISTORY Type Description Date Medical History Chronic Hepatitis B
--- OUTSIDE RECORDS SUMMARY | 2019-05-02 21:05 | XMS REPORT ---
Author Author Khurram Mancera Organization [facility] Address [address] [place] [address] [phone] Care Team Providers Care Orthopaedic General Name Role Phone Heather Mancera Unavailable PROBLEMS Type Condition ICD9-CM Code [id number] Code Onset Dates Condition S tatus SNOMED Code Problem Dyslipidemia E78.5 Active 1305514 07 Problem Essential hypertension I10 Active 09747810 Problem HIV (human immunodeficiency virus infection) B20 Active 14707807 ALLERGIES No Information ENCOUNTERS Encounter Location Date Diagnosis [facility] [address] [place] [address] [phone] Aug, [facility] [address] [place] [address] [phone] Aug, HIV (human immunodeficiency virus infect ion) B20 [facility] [address] [phone] Aug, HIV (human immunodeficiency virus infection) B20 ; Essential hypertension I10 and Dyslipidemia E78.5 IMMUNIZATIONS No Known Immunizations SOCIAL HISTORY Never Assessed REASON FOR VISIT PLAN OF CARE VITAL SIGNS MEDICATIONS Medication Instructions Dosage Frequency Start Date End Date Duration S tatus Viread 300 MG Orally Once a day 1 tablet 24h Aug, 30 day(s) Active RESULTS No Results PROCEDURES No Known procedures INSTRUCTIONS MEDICATIONS ADMINISTERED No Known Medications MEDICAL (GENERAL) HISTORY Type Description Date Medical History Chronic Hepatitis B
--- OUTSIDE RECORDS SUMMARY | 2019-05-02 21:05 | XMS REPORT ---
Author Author Khurram Lau Organization [facility] Address [address] [place] [phone] Care Team Providers Care Scraper Meat Name Role Phone Minerva Lau Unavailable PROBLEMS Type Condition ICD9-CM Code [id number] Code Onset Dates Condition S tatus SNOMED Code Problem Refused influenza vaccine Z28.21 Acti ve [id number] Problem HIV (human immunodeficiency virus infection) B20 Active 98780379 Problem Dyslipidemia E78.5 Active 5187737 07 Problem Essential hypertension I10 Active 73313841 ALLERGIES No Known Allergies ENCOUNTERS Encounter Location Date Diagnosis [address] [place], [place] [phone] Oct, Acquired immune deficiency s yndrome B20 ; Dental caries K02.9 ; Refused influenza vaccine Z28.21 ; Dyslipidemia E78.5 and Prostate cancer screening Z12.[address] [phone] Oct, [facility] [address] [place] [address] S [phone] Sep, [facility] [address] [place] [address] S [phone] Sep, [facility] [address] [place] [address] S [phone] Aug, [facility] [address] [place] [address] S [phone] Aug, HIV (human immunodeficiency virus infect ion) B20 [address] [phone] Aug, HIV (human immunodeficiency virus infection) B20 ; Essential hypertension I10 and Dyslipidemia E78.5 IMMUNIZATIONS No Known Immunizations SOCIAL HISTORY Never Assessed REASON FOR VISIT [facility] f/u PLAN OF CARE Activity Details Follow Up 01/23/18 or 04/03/18, prn Reas on: Pending Test Human Immunodeficiency Virus (HIV-1), Quantitative, Real-time PCR (graph) 73680 Pending Test Lipid Panel 78873 Pending Test Metabolic Panel (14), Compre hensive (CMP) 54880 Pending Test Prostate-specific Antigen (P SA), Free: Total Ratio Pending Test CD4/CD8 Ratio Profile 89957 Pending Test Human Immunodeficiency Virus 1 (HIV-1) [employer] Archive() VITAL SIGNS Height 69.5 in 2017-11-14 Weight 170 lbs 2017-11-14 Temperature 96.8 degrees Fahrenheit 2017-11-14 Heart Rate 76 /min 2017-11-14 Respiratory Rate 16 /min 2017-11-14 Oximetry 98 % 2017-11-14 BMI 24.74 kg/m2 2017-11-14 Blood pressure systolic 124 mm Hg 2017-11-14 Blood pressure diastolic 86 mm Hg 2017-11-14 MEDICATIONS Medication Instructions Dosage Frequency Start Date End Date Duration S tatus Reyataz 300 MG Orally Once a day 1 capsule with food 24h 30 days Active Norvir 100 MG Orally Once a day 1 tablet with a meal 24h 30 days Active Madison 3 1200 MG Orally Once a day 1 capsule 24h 30 d ays Active Lisinopril 5 MG Orally Once a day 1 tablet 24h 30 da ys Active Abacavir Sulfate-Lamivudine 600-300 MG Orally Once a day 1 tablet 24h 30 days Active Viread 300 MG Orally Once a day 1 tablet 24h Aug, 30 day(s) Active RESULTS No Results PROCEDURES Procedure Date Ordered Result Body Site T CELL, ABSOLUTE COUNT/RATIO Nov 14, 2017 COMPREHEN METABOLIC PANEL Nov 14, 2017 HIV-1, DNA, QUANT Nov 14, 2017 ASSAY OF PSA, TOTAL Nov 14, 2017 LIPID PANEL SO Nov 14, 2017 GENOTYPE, DNA, HIV REVERSE T Nov 14, 2017 ASSAY OF PSA, FREE Nov 14, 2017 INSTRUCTIONS MEDICATIONS ADMINISTERED No Known Medications MEDICAL (GENERAL) HISTORY Type Description Date Medical History Chronic Hepatitis B Medical History HIV dx: 1985 Medical History HTN Medical History Hyperlipidemia
--- OUTSIDE RECORDS SUMMARY | 2019-05-02 21:05 | XMS REPORT ---
Author Author Khurram Mancera Organization [facility] Address [address] [place] [address] [phone] Care Team Providers Care Metal Fabricator Name Role Phone Heather Mancera Unavailable PROBLEMS Type Condition ICD9-CM Code [id number] Code Onset Dates Condition S tatus SNOMED Code Problem Dyslipidemia E78.5 Active 2726695 07 Problem Essential hypertension I10 Active 93583735 Problem HIV (human immunodeficiency virus infection) B20 Active 61626166 ALLERGIES No Information ENCOUNTERS Encounter Location Date Diagnosis [address] [phone] Oct, [facility] [address] [place] [address] S [phone] Sep, [facility] [address] [place] [address] S [phone] Sep, [facility] [address] [place] [address] S [phone] Aug, [facility] [address] [place] [address] S [phone] Aug, HIV (human immunodeficiency virus infect ion) B20 [address] [phone] Aug, HIV (human immunodeficiency virus infection) B20 ; Essential hypertension I10 and Dyslipidemia E78.5 IMMUNIZATIONS No Known Immunizations SOCIAL HISTORY Never Assessed REASON FOR VISIT lipodystrophy treatment PLAN OF CARE VITAL SIGNS MEDICATIONS Unknown Medications RESULTS No Results PROCEDURES No Known procedures INSTRUCTIONS MEDICATIONS ADMINISTERED No Known Medications MEDICAL (GENERAL) HISTORY Type Description Date Medical History Chronic Hepatitis B
--- OUTSIDE RECORDS SUMMARY | 2019-05-02 21:05 | XMS REPORT ---
Author Author Khurram Mancera Organization [facility] Address [address] [place] [address] [phone] Care Team Providers Care Mexican Food Cook Name Role Phone Heather Mancera Unavailable PROBLEMS Type Condition ICD9-CM Code [id number] Code Onset Dates Condition S tatus SNOMED Code Problem Refused influenza vaccine Z28.21 Acti ve 271925757 Problem HIV (human immunodeficiency virus infection) B20 Active 13468417 Problem Dyslipidemia E78.5 Active 5522351 07 Problem Essential hypertension I10 Active 22633067 ALLERGIES No Information ENCOUNTERS Encounter Location Date Diagnosis [address] [phone] Nov, [address] [phone] Nov, [facility] [address] [place], [place] [phone] Oct, Acquired immune deficiency s yndrome B20 ; Dental caries K02.9 ; Refused influenza vaccine Z28.21 ; Dyslipidemia E78.5 and Prostate cancer screening Z12.[address] [phone] Oct, [facility] [address] [place] [address] S [phone] Sep, [facility] [address] [place] [address] S [phone] Sep, [facility] [address] [place] [address] S [id number] Aug, [facility] [address] [place] [address], S [phone] Aug, HIV (human immunodeficiency virus infect ion) B20 [facility] [address] [place] [phone] Aug, HIV (human immunodeficiency virus infection) B20 ; Essential hypertension I10 and Dyslipidemia E78.5 IMMUNIZATIONS No Known Immunizations SOCIAL HISTORY Never Assessed REASON FOR VISIT Out Patient Dental PLAN OF CARE VITAL SIGNS MEDICATIONS Unknown Medications RESULTS No Results PROCEDURES No Known procedures INSTRUCTIONS MEDICATIONS ADMINISTERED No Known Medications MEDICAL (GENERAL) HISTORY Type Description Date Medical History Chronic Hepatitis B Medical History HIV dx: 1984 Medical History HTN Medical History Hyperlipidemia
--- OUTSIDE RECORDS SUMMARY | 2019-05-02 21:05 | XMS REPORT ---
Author Author Khurram MARIE Organization [facility] Address [address] [place] [address] Care Team Providers Care Pesticide Use Medical Coordinator Name Role Phone SUZETTE MARIE Unavailable PROBLEMS Unknown Problems ALLERGIES No Information ENCOUNTERS Encounter Location Date Diagnosis [facility] [address] [facility] [id number] [address] [place] [id number] Feb, [facility] [address] [id number] [address] [place] [phone] Jan, [facility] [address] [facility] [id number] [address] [place] [address] [id number] Dec, Caries K02.9 and Dental exam ination Z01.20 [facility] [address] [id number] [address] [place] [phone] Oct, [facility] [address] [id number] [address] [place] [phone] Aug, IMMUNIZATIONS No Known Immunizations SOCIAL HISTORY Never Assessed REASON FOR VISIT [facility] PLAN OF CARE VITAL SIGNS MEDICATIONS Unknown Medications RESULTS No Results PROCEDURES No Known procedures INSTRUCTIONS MEDICATIONS ADMINISTERED No Known Medications MEDICAL (GENERAL) HISTORY Type Description Date Medical History HIV Surgical History No Surgical history information
--- OUTSIDE RECORDS SUMMARY | 2019-05-02 21:05 | XMS REPORT | Continuity of Care Document ---
Author Organization Unknown Address Unknown Phone Unavailable Allergies There is no data. Medications There is no data. 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 03/02/2018 ADIA APODACA MD, Ot E78.5 HYPERLIPIDEMIA, UNSPECIFIED 03/02/2018 ADIA APODACA MD Ot Z11.59 ENCOUNTER FOR SCREENING FOR OTHER VIRAL 03/02/2018 ADIA APODACA MD, Ot B18.1 CHRONIC VIRAL HEPATITIS B WITHOUT DELTA- 03/02/2018 ADIA APODACA MD Ot B20 HUMAN 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 03/02/2018 ADIA APODACA MD, Ot E78.5 HYPERLIPIDEMIA, UNSPECIFIED 03/02/2018 ADIA APODACA MD Ot Z11.59 ENCOUNTER FOR SCREENING FOR OTHER VIRAL 03/04/2018 ADIA APODACA MD, Ot B18.1 CHRONIC VIRAL HEPATITIS B WITHOUT DELTA- 03/04/2018 ADIA APODACA MD Ot 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 HUMAN 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 03/04/2018 ADIA APODACA MD Ot E78.5 HYPERLIPIDEMIA, UNSPECIFIED 03/04/2018 ADIA APODACA MD Ot Z11.59 ENCOUNTER FOR SCREENING FOR OTHER VIRAL 03/06/2018 ADIA APODACA MD Ot B18.1 CHRONIC VIRAL HEPATITIS B WITHOUT DELTA- 03/06/2018 ADIA APODACA MD Ot B20 HUMAN 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 03/06/2018 ADIA APODACA MD, Ot E78.5 HYPERLIPIDEMIA, UNSPECIFIED 03/06/2018 ADIA APODACA MD Ot Z11.59 ENCOUNTER FOR SCREENING FOR OTHER VIRAL 03/09/2018 ADIA APODACA MD Ot B18.1 CHRONIC VIRAL HEPATITIS B WITHOUT DELTA- 03/09/2018 ADIA APODACA MD Ot B20 HUMAN 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 03/09/2018 ADIA APODACA MD Ot E78.5 HYPERLIPIDEMIA, UNSPECIFIED 03/09/2018 ADIA APODACA MD Ot Z11.59 ENCOUNTER FOR SCREENING FOR OTHER VIRAL 03/09/2018 ADIA APODACA MD, Ot B18.1 CHRONIC VIRAL HEPATITIS B WITHOUT DELTA- 03/09/2018 ADIA APODACA MD Ot B20 HUMAN 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 03/09/2018 ADIA APODACA MD Ot E78.5 HYPERLIPIDEMIA, UNSPECIFIED 03/09/2018 ADIA APODACA MD Ot Z11.59 ENCOUNTER FOR SCREENING FOR OTHER VIRAL 04/01/2018 ADIA APODACA MD Ot B18.1 CHRONIC VIRAL HEPATITIS B WITHOUT DELTA- 04/01/2018 ADIA APODACA MD Ot B20 HUMAN 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 Results Test Result Range Comprehensive metabolic panel - 02/25/18 14:38 Serum or plasma sodium measurement (moles/volume) 139 mmol/L 135-145 Serum or plasma potassium measurement (moles/volume) 4.3 mmol/L 3.6-5.0 Serum or plasma chloride measurement (moles/volume) 107 mmol/L 98-107 Carbon dioxide 23 mmol/L 21-32 Serum or plasma anion gap determination (moles/volume) 9 mmol/L 5-14 Serum or plasma urea nitrogen measurement (mass/volume ) 22 mg/dL 7-18 Serum or plasma creatinine measurement (mass/volume) 1.55 mg/dL 0.60-1.30 Serum or plasma urea nitrogen/creatinine mass ratio 14 NRG Serum or plasma creatinine measurement w ith calculation of estimated glomerular filtration rate 46 NRG Serum or plasma glucose measurement (mass/volume) 106 mg/dL 70-105 Serum or plasma calcium measurement (mass/volume) 9.7 mg/dL 8.5-10.1 Serum or plasma total bilirubin measurement (mass/volu me) 0.5 mg/dL 0.1-1.0 Serum or plasma alkaline phosphatase frandy surement (enzymatic activity/volume) 45 U/L 40-136 Serum or plasma aspartate aminotransfera se measurement (enzymatic activity/volume) 24 U/L 5-34 Serum or plasma alanine aminotransferase measurement (enzymatic activity/volume) 34 U/L 0-55 Serum or plasma protein measurement (mass/volume) 8.0 g/dL 6.4-8.2 Serum or plasma albumin measurement (mass/volume) 4.6 g/dL 3.2-4.5 Lipid 1996 panel - 02/25/18 14:38 Serum or plasma triglyceride measurement (mass/volume) 501 mg/dL <150 Serum or plasma cholesterol measurement (mass/volume) 179 mg/dL < 200 Serum or plasma cholesterol in HDL measurement (mass/v olume) 28 mg/dL 40-60 Cholesterol in LDL [mass/volume] in serum or plasma by direct assay 89 mg/dL 1-129 Serum or plasma cholesterol in VLDL measurement (mass/ volume) 100 mg/dL 5-40 Hepatitis A virus IgM antibody assay - 0 02/25/18 14:38 Hepatitis A virus IgM antibody assay Non-Reactive Non- Reactive Hepatitis A virus total antibody assay - 02/25/18 14:38 HEP A ANTIBODY INDEX 13.21 % <=1.00 Hepatitis A total antibody Reactive Non -Reactive Serum hepatitis B virus core antibody as say (units/volume) - 02/25/18 14:38 Hepatitis B core antibody measurement 11.15 <=1.00 Serum hepatitis B virus core antibody detection Re active Non-Reactive Serum hepatitis C virus antibody assay ( units/volume) - 02/25/18 14:38 Serum hepatitis C virus antibody detection Non-[place] ctive Non-Reactive Serum ragweed IgE antibody assay - 02/25 14:38 Hepatitis B virus basal core promoter mutation detecti on Not Detected <=0.99 Serum reagin antibody assay (units/volum e) by RPR - 02/25/18 14:38 Serum reagin antibody assay (units/volume) by RPR Non-Reactive Non-Reactive Blood CD3+CD4+ (T4 helper) cells/CD3+CD8 + (T8 suppressor cells) cells ratio - 02/25/18 14:38 Percent of cells positive for CD4 antigen 41.6 % NRG Absolute CD4 count 696.1 /uL 500.0-2000. 0 Percent of cells positive for CD8 antigen 41.1 % 15.0-39.0 Absolute CD8 count 688 /uL 200-1300 Ratio of cells positive for CD3 and CD4 antigens to cells positive for CD3 and CD8 antigens 1.0 % 1.2-6.0 Lymphocyte percentage by flow cytometry 31.0 % 18.0-44.0 WBC FOR FLOW 5.4 /uL 4.3-11.0 TB GOLD QUANTIFERON PLUS - 02/25/18 14:3 8 [id number] <0.00 0.00-0.34 QuantiFERON-TB test Negative Negative Mitogen stimulated gamma interferon [uni ts/volume] corrected for background in blood 0.05 [iU]/mL 0.00-7.99 Mitogen stimulated gamma interferon [units/volume] in blood > [iU]/mL 0.50-10.00 Complete blood count (CBC) with automate d white blood cell (WBC) differential - 05/01/19 17:30 Blood leukocytes automated count (number/volume) 7.1 10*3/uL 4.3-11.0 Blood erythrocytes automated count (number/volume) 5.39 10*6/uL 4.35-5.85 Venous blood hemoglobin measurement (mass/volume) 16.3 g/dL 13.3-17.7 Blood hematocrit (volume fraction) 48 % 40-54 Automated erythrocyte mean corpuscular volume 89 [ foz_us] 80-99 Automated erythrocyte mean corpuscular h emoglobin (mass per erythrocyte) 30 pg 25-34 Automated erythrocyte mean corpuscular h emoglobin concentration measurement (mass/volume) 34 g/dL 32-36 Automated erythrocyte distribution width ratio 13. 2 % 10.0- 14.5 Automated blood platelet count (count/volume) 233 10*3/uL 130-400 Automated blood platelet mean volume measurement 9.4 [foz_us] 7.4-10.4 Automated blood neutrophils/100 leukocytes 51 % 42-75 Automated blood lymphocytes/100 leukocytes 39 % 12-44 Blood monocytes/100 leukocytes 7 % 0-12 Automated blood eosinophils/100 leukocytes 2 % 0-10 Automated blood basophils/100 leukocytes 1 % 0-10 Blood neutrophils automated count (number/volume) 3.6 10*3 1.8-7.8 Blood lymphocytes automated count (number/volume) 2.7 10*3 1.0-4.0 Blood monocytes automated count (number/volume) 0. 5 10*3 0.0-1.0 Automated eosinophil count 0.2 10*3/uL 0 .0-0.3 Automated blood basophil count (count/volume) 5.0 10*3/uL 0.0-0.1 Comprehensive metabolic panel - 05/01/19 17:30 Serum or plasma sodium measurement (moles/volume) 142 mmol/L 135-145 Serum or plasma potassium measurement (moles/volume) 4.0 mmol/L 3.6-5.0 Serum or plasma chloride measurement (moles/volume) 104 mmol/L 98-107 Carbon dioxide 21 mmol/L 21-32 Serum or plasma anion gap determination (moles/volume) 17 mmol/L 5-14 Serum or plasma urea nitrogen measurement (mass/volume ) 19 mg/dL 7-18 Serum or plasma creatinine measurement (mass/volume) 1.24 mg/dL 0.60-1.30 Serum or plasma urea nitrogen/creatinine mass ratio 15 NRG Serum or plasma creatinine measurement w ith calculation of estimated glomerular filtration rate 59 NRG Serum or plasma glucose measurement (mass/volume) 92 mg/dL 70-105 Serum or plasma calcium measurement (mass/volume) 10.0 mg/dL 8.5-10.1 Serum or plasma total bilirubin measurement (mass/volu me) 0.4 mg/dL 0.1-1.0 Serum or plasma alkaline phosphatase frandy surement (enzymatic activity/volume) 43 U/L 40-136 Serum or plasma aspartate aminotransfera se measurement (enzymatic activity/volume) 28 U/L 5-34 Serum or plasma alanine aminotransferase measurement (enzymatic activity/volume) 32 U/L 0-55 Serum or plasma protein measurement (mass/volume) 8.7 g/dL 6.4-8.2 Serum or plasma albumin measurement (mass/volume) 5.2 g/dL 3.2-4.5 Magnesium - 05/01/19 17:30 Magnesium 2.2 mg/dL 1.6-2.4 Lipase - 05/01/19 17:30 Lipase 32 U/L 8-78 TROPONIN I FS - 05/01/19 17:30 TROPONIN I FS < 0.30 <0.30 PROBNP FS - 05/01/19 17:30 PROBNP FS 35.7 pg/mL <75.0 PT panel in platelet poor plasma by coag ulation assay - 05/01/19 17:43 Prothrombin time (PT) in platelet poor plasma by coagu lation assay 14.0 s 12.2-14.7 INR in platelet poor plasma or blood by coagulation as say 1.0 0.8-1.4 Activated partial thromboplastin time (a PTT) in platelet poor plasma bycoagulation assay - 05/01/19 17:43 Activated partial thromboplastin time (a PTT) in platelet poor plasma bycoagulation assay 32 s 24-35 Encounters ACCT No. Visit Date/Time Discharge Status Pt. Type Provider Facility Loc./Unit Complaint [id number] 12/05/2018 08:30:00 12/05/2018 23:59:5 9 CLS Outpatient [facility] [id number] 02/25/2018 14:08:00 019 23:59:59 CLS Outpatient ADIA APODACA MD [facility] LAB SCREENING FOR VIRAL DIS EASES [id number] 05/01/2019 18:01:00 Document Registration
--- OUTSIDE RECORDS SUMMARY | 2019-05-02 21:05 | XMS REPORT ---
Author Author Khurram Mancera Organization [facility] Address [address] [place] [address] [phone] Care Team Providers Care Gatekeeper Name Role Phone Heather Mancera Unavailable PROBLEMS Type Condition ICD9-CM Code CAK06-SU Code Onset Dates Condition S tatus SNOMED Code Problem Dyslipidemia E78.5 Active 0384007 07 Problem Essential hypertension I10 Active 81680499 Problem HIV (human immunodeficiency virus infection) B20 Active [id number] ALLERGIES No Information ENCOUNTERS Encounter Location Date Diagnosis [facility] [address] [place] [phone] Aug, [facility] [address] [place] [address] [phone] Aug, HIV (human immunodeficiency virus infect ion) B20 [facility] [address] [phone] Aug, HIV (human immunodeficiency virus infection) B20 ; Essential hypertension I10 and Dyslipidemia E78.5 IMMUNIZATIONS No Known Immunizations SOCIAL HISTORY Never Assessed REASON FOR VISIT needs refill on tenofivir and voucher please PLAN OF CARE VITAL SIGNS MEDICATIONS Medication Instructions Dosage Frequency Start Date End Date Duration S tatus Abacavir Sulfate-Lamivudine 600-300 MG Orally Once a day 1 tablet 24h 30 days Active RESULTS No Results PROCEDURES No Known procedures INSTRUCTIONS MEDICATIONS ADMINISTERED No Known Medications MEDICAL (GENERAL) HISTORY Type Description Date Medical History Chronic Hepatitis B
--- OUTSIDE RECORDS SUMMARY | 2019-05-02 21:05 | XMS REPORT ---
Author Author Khurram Sibley Organization [facility] Address [address], [place] [id number] Care Team Providers Care Arson And [employer] Investigator Name Role Phone Ary Sibley Unavailable PROBLEMS Type Condition ICD9-CM Code [id number] Code Onset Dates Condition S tatus SNOMED Code Problem Dyslipidemia E78.5 Active 3349002 07 Problem Essential hypertension I10 Active 24598839 Problem HIV (human immunodeficiency virus infection) B20 Active 74363006 ALLERGIES No Information ENCOUNTERS Encounter Location Date Diagnosis [facility] [address] [place] [id number] Aug, [facility] [address] [place] [address] [phone] Aug, HIV (human immunodeficiency virus infect ion) B20 [facility] [address] [place] [phone] Aug, HIV (human immunodeficiency virus infection) B20 ; Essential hypertension I10 and Dyslipidemia E78.5 IMMUNIZATIONS No Known Immunizations SOCIAL HISTORY Never Assessed REASON FOR VISIT Re-establish care PLAN OF CARE Activity Details Follow Up 2 Months Reason: VITAL SIGNS Height 69.5 in 2017-09-05 Weight 166.5 lbs 2017-09-05 Temperature 96.6 degrees Fahrenheit 2017-09-05 Heart Rate 79 /min 2017-09-05 Respiratory Rate 18 /min 2017-09-05 Oximetry 97 % 2017-09-05 BMI 24.23 kg/m2 2017-09-05 Blood pressure systolic 124 mm Hg 2017-09-05 Blood pressure diastolic 82 mm Hg 2017-09-05 MEDICATIONS Medication Instructions Dosage Frequency Start Date End Date Duration S tatus Lisinopril 5 MG Orally Once a day 1 tablet 24h 30 da ys Active Julian 3 1200 MG Orally Once a day 1 capsule 24h 30 d ays Active Reyataz 300 MG Orally Once a day 1 capsule with food 24h 30 days Active Norvir 100 MG Orally Once a day 1 tablet with a meal 24h 30 days Active Abacavir Sulfate-Lamivudine 600-300 MG Orally Once a day 1 tablet 24h 30 days Active RESULTS Name Result Date Reference Range Rapid Plasma Reagin (RPR), Qualitative Test 15367 2017-09-05 RPR Non Reactive Non Reactive Chlamydia / Gonorrhea (GC), PETER [id number] 28350 2017 Chlamydia trachomatis, PETER Negative Negat jose luis Neisseria gonorrhoeae, PETER Negative Negat jose luis Metabolic Panel (14), Comprehensive (CMP) 99240 2017-09-05 Glucose 108 65-99 BUN 23 8-27 Creatinine 1.21 0.76-1.27 eGFR If NonAfricn Am 64 >59 eGFR If Africn Am 74 >59 BUN/Creatinine Ratio 19 10-24 Sodium 140 134-144 Potassium 4.5 3.5-5.2 Chloride 101 96-106 Carbon Dioxide, Total 23 20-29 Calcium 9.6 8.6-10.2 Protein, Total 7.6 6.0-8.5 Albumin 4.7 3.6-4.8 Globulin, Total 2.9 1.5-4.5 A/G Ratio 1.6 1.2-2.2 Bilirubin, Total 1.1 0.0-1.2 Alkaline Phosphatase 59 39-117 AST (SGOT) 28 0-40 ALT (SGPT) 58 0-44 CD4/CD8 Ratio Profile [id number] 2017-09-05 Absolute CD 4 [place] [phone] % CD 4 Pos. Lymph. 40.2 30.8-58.5 Abs. CD 8 Suppressor 888 109-897 % CD 8 Pos. Lymph. 44.4 12.0-35.5 CD4/CD8 Ratio 0.91 0.92-3.72 WBC 5.5 3.4-10.8 RBC 5.00 4.14-5.80 Hemoglobin 16.1 13.0-17.7 Hematocrit 47.1 37.5-51.0 MCV 94 79-97 MCH 32.2 26.6-33.0 MCHC 34.2 31.5-35.7 RDW 14.4 12.3-15.4 Platelets 185 150-379 Neutrophils 51 Not Estab. Lymphs 37 Not Estab. Monocytes 8 Not Estab. Eos 2 Not Estab. Basos 1 Not Estab. Immature Cells [employer] Neutrophils (Absolute) 2.8 1.4-7.0 Lymphs (Absolute) 2.0 0.7-3.1 Monocytes(Absolute) 0.5 0.1-0.9 Eos (Absolute) 0.1 0.0-0.4 Baso (Absolute) 0.0 0.0-0.2 Immature Granulocytes 1 Not Estab. Immature Grans (Abs) 0.0 0.0-0.1 NRBC [employer] Hematology Comments: [employer] Human Immunodeficiency Virus (HIV-1), Quantitative, Re al-time PCR (graph) [id number] 2017-09-05 HIV-1 RNA by PCR 30 log10 HIV-1 RNA 1.477 PROCEDURES Procedure Date Ordered Result Body Site T CELL, ABSOLUTE COUNT/RATIO September 05, 2017 COMPREHEN METABOLIC PANEL September 05, 2017 BLOOD SEROLOGY, QUALITATIVE September 05, 2017 HIV-1, DNA, QUANT September 05, 2017 N.GONORRHOEAE, DNA, AMP PROB September 05, 2017 CHYLMD TRACH, DNA, AMP PROBE September 05, 2017 INSTRUCTIONS MEDICATIONS ADMINISTERED No Known Medications MEDICAL (GENERAL) HISTORY Type Description Date Medical History Chronic Hepatitis B
== END 2019-05-01 18:40 | disposition home or self-care (01) ==
LOC: EDUNIT# 17:19 → ER FS 17:20
DX: R07.89 Other chest pain (principal); Z21 Asymptomatic human immunodeficiency virus [HIV] infection status; Z88.2 Allergy status to sulfonamides; Z88.1 Allergy status to other antibiotic agents
CPT/HCPCS: 36415; 71045; 80053; 83690; 83735; 83880; 84484; 85025; 85610; 85730; 93005; 93041

== ENCOUNTER → 2019-10-29 | Outpatient (CLI) | payer BC ==
[~2019-10-29] MED LIST: DARU1TAB3; FENO160T12; LISI-556
--- NOTE | 2019-10-29 13:13 | Diagnostic Imaging Report ---
INDICATION: Right shoulder pain. EXAMINATION: AP, oblique, and trans-scapular views of the right shoulder are obtained. FINDINGS: No fracture or acute bony abnormality is seen. There is minimal degenerative change of the AC joint. Glenohumeral joint appears grossly unremarkable. IMPRESSION: Mild chronic findings with no acute abnormality. Dictated by: Dictated on workstation # [id number]
== END ==
LOC: RAD FS 12:49
PROVIDERS: ATTEND Nurse Practitioner Family
DX: M25.511 Pain in right shoulder (principal)
CPT/HCPCS: 73030